=== PATIENT | female | born 1950 | race Caucasian/White ===

== ENCOUNTER → 2020-05-29 15:05 | Outpatient (CLI) | payer OTHER, SELFPAY ==
--- NOTE | ~2020-05-29 | MM_ITS ---
EXAMINATION: MM screening [facility] BI w tegan HISTORY: Screening mammogram TECHNIQUE: Craniocaudal and mediolateral oblique 3-D tomosynthesis images were obtained and synthetic 2-D images were generated. CAD analysis was submitted and interpreted. COMPARISON: 01/26/2019, 07/05/2017, 04/28/2016 bilateral digital screening mammogram examinations BREAST PARENCHYMAL COMPOSITION: The breasts are heterogeneously dense, which may obscure small masses . FINDINGS: Scattered bilateral benign calcifications. There is no evidence of suspicious mass, calcifi cation, or architectural distortion to suggest malignancy in either breast. There has been no suspici ous interval change. IMPRESSION: 1. No mammographic evidence of malignancy. 2. Recommend routine screening mammography in one year. BI-RADS Category 2: Benign Reviewed, dictated and finalized at location A. 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
== END ==
PROVIDERS: PCP Internal Medicine; Visit Provider Nurse Practitioner
DX: Z12.31 Encounter for screening mammogram for malignant neoplasm of breast (principal)
CPT/HCPCS: 77063; 77067

== ENCOUNTER 2020-11-27 07:58 | Outpatient (CLI) | payer OTHER, SELFPAY ==
--- NOTE | ~2020-11-27 | XR_ITS ---
EXAMINATION: XR abdomen/kub 1V INDICATION: Left upper quadrant pain TECHNIQUE: Supine views of the abdomen were obtained on 2 radiographs. COMPARISON: 06/21/2018 FINDINGS: Left upper quadrant calcifications likely reflect old granulomatous disease of the spleen. The bowel gas pattern is normal. There are multiple phleboliths in the pelvis. Calcifications to the left of midline in the pelvis and mid abdomen likely reflect gonadal vein phleboliths. There is mild osteoarthritis of the hips. IMPRESSION: 1. No radiographic correlate for the patient's symptoms. Reviewed, dictated and finalized at location B.
--- NOTE | ~2020-11-27 | XR_ITS ---
EXAMINATION: XR knee RT 3V DATE: 11/27/2020 08:18 INDICATION: Right knee pain TECHNIQUE: Three views of the right knee were obtained. COMPARISON: 01/26/2018 FINDINGS: Alignment is normal. No fracture or osteochondral lesion. There is tracker minimal osteoart hritis, moderate in the patellofemoral compartment and mild in the medial and lateral compartment. No joint effusion/synovitis. Calcified atherosclerosis is noted. Again seen are loose bodies in the kn ee joint and posterior to the knee joint. IMPRESSION: 1. 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 No acute findings. Reviewed, dictated and finalized at location B.
== END 2020-11-27 07:59 | disposition home or self-care (01) ==
PROVIDERS: PCP Internal Medicine; Visit Provider Nurse Practitioner
DX: R10.12 Left upper quadrant pain (principal); M25.561 Pain in right knee
CPT/HCPCS: 73562; 74018

== ENCOUNTER → 2021-05-19 09:17 | Outpatient (CLI) | payer OTHER, SELFPAY ==
[2021-05-19 13:20] LABS: Influenza A QL RT-PCR Negative (Negative); Influenza B QL RT-PCR Negative (Negative); SARS-CoV-2 RNA PCR Negative
== END ==
PROVIDERS: PCP Internal Medicine; Visit Provider Internal Medicine
DX: R68.89 Other general symptoms and signs (principal); Z20.822 Contact with and (suspected) exposure to COVID-19
CPT/HCPCS: 87502; C9803; U0003; U0005

== ENCOUNTER → 2021-07-31 04:47 | Outpatient (CLI) | payer OTHER, SELFPAY ==
[2021-07-31 11:27] LABS: Influenza A QL RT-PCR Negative (Negative); Influenza B QL RT-PCR Negative (Negative); SARS-CoV-2 RNA PCR Negative
== END ==
PROVIDERS: PCP Internal Medicine; Visit Provider Internal Medicine
DX: J06.9 Acute upper respiratory infection, unspecified (principal); Z20.822 Contact with and (suspected) exposure to COVID-19
CPT/HCPCS: 87502; C9803; U0003; U0005

== ENCOUNTER 2021-08-25 10:19 | Outpatient (CLI) | payer OTHER, SELFPAY ==
--- NOTE | ~2021-08-25 | US_ITS ---
EXAMINATION: US venous doppler [facility] DATE: 08/25/2021 10:53 INDICATION: Right lower limb pain TECHNIQUE: Gamez scale images without and with compression and Doppler images of the right lower extre mity veins were obtained. COMPARISON: None FINDINGS: The right common femoral vein, profunda femoral vein, femoral vein, popliteal vein, peronea l trunk, posterior tibial veins, and greater saphenous vein are patent. There is a subtle area of inc reased echogenicity in the superficial subcutaneous tissues in the area of clinical concern. IMPRESSION: 1. Patent right lower extremity veins. No evidence of deep venous thrombosis. 2. Findings suggestive of soft tissue hematoma in the area of clinical concern. Reviewed, dictated and finalized at location A.
== END 2021-08-25 10:20 | disposition home or self-care (01) ==
PROVIDERS: PCP Internal Medicine; Visit Provider Nurse Practitioner
DX: M79.605 Pain in left leg (principal)
CPT/HCPCS: 93971

== ENCOUNTER 2021-10-05 10:16 | Outpatient (CLI) | payer OTHER, SELFPAY ==
[2021-10-05 11:20] LABS: Anion Gap 5 mmol/L (8-16); Blood Urea Nitrogen 27 mg/dL (7-17); Calcium 9.1 mg/dL (8.4-10.2); Carbon Dioxide 26 mmol/L (22-30); Chloride 107 mmol/L (98-107); Cholesterol 154 mg/dL (0-200); Estimated Glomerular Filt Rate 49; Glucose 106 mg/dL (65-110); HDL Direct 37 mg/dL; Potassium 4.1 mmol/L (3.4-5.0); Sodium 138 mmol/L (137-145); Triglycerides 105 mg/dL (<150)
[2021-10-05 11:31] LABS: LDL Cholesterol Direct 76 mg/dL
== END 2021-10-05 10:17 | disposition home or self-care (01) ==
LOC: ANHLAB 10:18
PROVIDERS: PCP Internal Medicine; Visit Provider Internal Medicine Cardiovascular Disease
DX: I50.42 Chronic combined systolic (congestive) and diastolic (congestive) heart failure (principal); I25.118 Atherosclerotic heart disease of native coronary artery with other forms of angina pectoris; E78.00 Pure hypercholesterolemia, unspecified
CPT/HCPCS: 36415; 80048; 80061

== ENCOUNTER → 2021-10-05 11:57 | Outpatient (CLI) | payer OTHER, SELFPAY ==
--- NOTE | ~2021-10-05 | XR_ITS ---
XR_CERV2-3V_CR DATE: 10/05/2021 12:49 INDICATION: Neck pain TECHNIQUE: Lateral, swimmer's, AP, odontoid and open-mouth views COMPARISON: 09/30/2014 cervical spine FINDINGS: There is straightening of the cervical spine which may be due to muscle spasm. C1 and C2 ar e normally aligned and the odontoid process is intact. Moderate loss of interspace height is suggested at C5-6. No fracture or dislocation or locked facet or prevertebral soft tissue swelling is detected. IMPRESSION: Straightening, which may be due to muscle spasm Moderate degenerative disc disease at C5-6 Reviewed, dictated and finalized at Location A. Reviewed, dictated and finalized at location A.
== END ==
PROVIDERS: PCP Internal Medicine; Visit Provider Internal Medicine
DX: M50.322 Other cervical disc degeneration at C5-C6 level (principal)
CPT/HCPCS: 72040

== ENCOUNTER 2021-11-16 12:51 | Emergency (ER) | payer OTHER, SELFPAY ==
[2021-11-16] VITALS (36 sets, daily range): BP systolic 101–132; BP diastolic 51–82; PULSE 49–65; RESP 10–21; TEMP 36.8; O2SAT 95–100
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
--- NOTE | 2021-11-16 12:58 | ECG_ITS ---
Measurements Intervals [place] Rate: 60 P: 35 OK: 188 QRS: 115 QRSD: 121 T: 98 QT: 432 QTc: 434 Interpretive Statements SINUS RHYTHM ST-ELEVATION INFEROLATERAL LEADS WITH LATERAL MYOCARDIAL INFARCTION, PROBABLY RECENT ABNORMAL ECG NO PREVIOUS ECG AVAILABLE FOR COMPARISON Electronically Signed On 11-16-2021 16:35:42 CDT by Apolinar Morrissey M.D.
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
--- NOTE | 2021-11-16 13:38 | PC.NURSE ---
EDP and Recording Artist at bedside to assess pt.
[2021-11-16 13:55] LABS: Basophils Percent Auto 0.5 % (0.2-1.2); Eosinophils Absolute Auto 0.2 K/mm3 (0-0.3); Eosinophils Percent Auto 3.3 % (0-4.4); Hematocrit 36.1 % (37.0-47.0); Hemoglobin 12.3 g/dL (12.0-15.0); Immature Granulocyte Absolute 0.01 K/mm3 (0.00-0.031); Immature Granulocyte Percent A 0.2 % (0-0.5); Lymphocytes Absolute Auto 1.98 K/mm3 (0.9-3.2); Lymphocytes Percent Auto 34.7 % (18.3-44.2); Mean Corpuscular HGB Conc 34.1 g/dl (32-36); Mean Corpuscular Hemoglobin 29.6 pg (26-34); Mean Corpuscular Volume 86.8 fl (80-100); Monocytes Absolute Auto 0.4 K/mm3 (0.1-0.6); Monocytes Percent Auto 7.4 % (2.6-8.5); Neutrophils Absolute Auto 3.1 K/mm3 (1.3-6.7); Neutrophils Percent Auto 53.9 % (45.5-73.1); Platelet Count Result 190 k/mm3 (150-375); Red Blood Count 4.16 M/mm3 (4.2-5.4); Red Cell Distribution Width 12.9 % (11.5-14.5); White Blood Count 5.7 K/mm3 (4.5-10.0)
[2021-11-16 14:06] LABS: INR 1.1; Prothrombin Time 13.5 Seconds (11.1-14.7)
[2021-11-16 14:07] LABS: Partial Thromboplastin Time 26.9 SECONDS (22.3-36.8)
[2021-11-16 14:11] LABS: Alanine Aminotransferase 21 U/L (6-35); Albumin Level 3.7 g/dL (3.5-5.1); Alkaline Phosphatase 45 U/L (38-126); Anion Gap 8 mmol/L (8-16); Aspartate Amino Transferase 26 U/L (14-36); Bilirubin,Total 0.5 mg/dL (0.2-1.3); Blood Urea Nitrogen 25 mg/dL (7-17); Calcium 8.7 mg/dL (8.4-10.2); Carbon Dioxide 25 mmol/L (22-30); Chloride 104 mmol/L (98-107); Estimated CRCL calculation 54 ml/min; Estimated Glomerular Filt Rate > 60; Glucose 119 mg/dL (65-110); Magnesium 2.1 mg/dL (1.6-2.3); Sodium 137 mmol/L (137-145)
[2021-11-16] MEDS: MORPHINE SULFATE (*CRX) 2 MG/ML INJ IV PUSH (14:16)
[2021-11-16] MEDS: ONDANSETRON INJ 4 MG/2 ML VIAL IV PUSH (14:16)
[2021-11-16] MEDS: ASPIRIN 325 MG TABLET PO (14:16)
[2021-11-16 14:22] LABS: NT Pro B Type Natriuretic Pept 574 pg/mL (5-100); Troponin I 0.019 ng/mL (0.000-0.034)
[2021-11-16] MEDS: FUROSEMIDE INJ 40 MG/4 ML VIAL 20 MG IV PUSH (15:40)
[2021-11-16 17:03] LABS: Troponin I 0.021 ng/mL (0.000-0.034)
== END 2021-11-16 18:24 | disposition home or self-care (01) ==
PROVIDERS: Emergency Provider Emergency Medicine; PCP Internal Medicine
DX: S29.9XXA Unspecified injury of thorax, initial encounter (principal); I25.10 Atherosclerotic heart disease of native coronary artery without angina pectoris; I10 Essential (primary) hypertension; E78.5 Hyperlipidemia, unspecified; M19.90 Unspecified osteoarthritis, unspecified site; E55.9 Vitamin D deficiency, unspecified; Z95.5 Presence of coronary angioplasty implant and graft; Z90.710 Acquired absence of both cervix and uterus; Z79.82 Long term (current) use of aspirin; Z79.02 Long term (current) use of antithrombotics/antiplatelets; I51.7 Cardiomegaly; R94.31 Abnormal electrocardiogram [ECG] [EKG]; V47.0XXA Car driver injured in collision with fixed or stationary object in nontraffic accident, initial encounter
CPT/HCPCS: 36415; 71045; 71260; 80053; 83735; 83880; 84484; 85025; 85610; 85730; 93005; 96374; 96375; 99284; A9270; J1940; J2270; J2405; Q9967

== ENCOUNTER 2021-12-08 09:02 | Outpatient (CLI) | payer OTHER, SELFPAY ==
[2021-12-08 09:59] LABS: Alanine Aminotransferase 17 U/L (6-35); Alkaline Phosphatase 53 U/L (38-126); Anion Gap 7 mmol/L (8-16); Aspartate Amino Transferase 26 U/L (14-36); Bilirubin,Total 0.6 mg/dL (0.2-1.3); Blood Urea Nitrogen 15 mg/dL (7-17); Calcium 8.7 mg/dL (8.4-10.2); Carbon Dioxide 25 mmol/L (22-30); Chloride 109 mmol/L (98-107); Cholesterol 128 mg/dL (0-200); Estimated Glomerular Filt Rate 55; Glucose 100 mg/dL (65-110); HDL Direct 38 mg/dL; Potassium 4.2 mmol/L (3.4-5.0); Sodium 141 mmol/L (137-145); Triglycerides 96 mg/dL (<150)
[2021-12-08 10:10] LABS: LDL Cholesterol Direct 47 mg/dL
[2021-12-08 12:09] LABS: Hemoglobin A1C 5.5 % (<5.7)
== END 2021-12-08 09:03 | disposition home or self-care (01) ==
PROVIDERS: PCP Internal Medicine; Visit Provider Internal Medicine
DX: E55.9 Vitamin D deficiency, unspecified (principal); E78.5 Hyperlipidemia, unspecified; R73.02 Impaired glucose tolerance (oral)
CPT/HCPCS: 36415; 80053; 80061; 82306; 83036

== ENCOUNTER 2022-03-29 16:25 | Outpatient (NON) | payer OTHER, SELFPAY | END 2022-03-29 16:26 | disposition home or self-care (01) | PROVIDERS: PCP Internal Medicine; Visit Provider Internal Medicine | DX: R19.7 Diarrhea, unspecified (principal) | CPT/HCPCS: 87045; 87427 ==

== ENCOUNTER 2022-04-16 20:51 | Emergency (ER) | payer OTHER, SELFPAY ==
--- NOTE | ~2022-04-16 | XR_ITS ---
EXAMINATION: XR chest 2V DATE: 04/16/2022 22:21 INDICATION: Cough. Shortness of breath. Chills. Diarrhea. TECHNIQUE: Frontal and lateral views of the chest were obtained. COMPARISON: Chest single view 11/16/2021, chest CT 11/16/2021 FINDINGS: Calcified lung nodules and calcified hilar and mediastinal lymph nodes are consistent with old granulomatous disease. There is no pneumonia, pleural effusion, or pneumothorax. Cardiomegaly is noted. IMPRESSION: 1. Cardiomegaly. Reviewed, dictated and finalized at location A. 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 Cardiomegaly.
[2022-04-16 20:53] VITALS: BP 110/63; PULSE 97; RESP 20; TEMP 36.7; O2SAT 99
--- NOTE | 2022-04-16 21:38 | ECG_ITS ---
Measurements Intervals [place] Rate: 94 P: 56 DE: 166 QRS: 105 QRSD: 112 T: 37 QT: 322 QTc: 404 Interpretive Statements REDUCED ECG QUALITY BECAUSE OF BASELINE ARTIFACT SINUS RHYTHM RIGHT AXIS DEVIATION [QRS AXIS > 100] PREVIOUS INFEROLATERAL MYOCARDIAL INFARCTION WITH PERSISTENT ST SEGMENT ELEVATION COMPARED TO ECG 11/16/2021 13:02:32 NO SIGNIFICANT CHANGES OTHER THAN BASELINE ARTIFACT ON THIS CURRENT TRACING Electronically Signed On 04-17-2022 9:46:53 WEBMETHODS ARCHITECT by Angel Inman M.D.
--- NOTE | 2022-04-16 21:51 | ED.URI ---
HPI - URI/Sore Throat General Chief Complaint: Upper Respiratory Infection Stated Complaint: cough Time Seen by Provider: 04/16/22 21:30 Source: patient and RN notes reviewed Mode of arrival: ambulatory Limitations: no limitations History of Present Illness HPI Narrative: This is a 71 year old female with history of CHF, hypertension, CAD, stents who presents for evaluation of cough, headache. She reports having sinus congestion, sinus pressure and runny nose for 3 days. She also reports cough productive with yellowish phlegm. she also reports frontal headache that has been constant for 3 day. She denies nausea or vomiting, but she is having diarrhea. She reports 5 episodes of watery, nonbloody diarrhea today with intermittent abdominal cramping. She denies abdominal cramping currently. She denies chest pain but she reports shortness of breath. She also had upper back pain with coughing today. She has not measured a fever at home. She has been taking tessalon perles and mucinex for her symptoms. Related Data Home Medications Medication Instructions Recorded Confirmed aspirin 81 mg tablet,delayed 81 mg PO DAILY 04/08/20 10/05/21 release cholecalciferol (vitamin D3) 125 mcg PO 04/08/20 10/05/21 mcg (5,000 unit) disintegrating tablet potassium chloride 10 mEq 10 meq PO DAILY 04/08/20 10/05/21 tablet,extended release(part/cryst) metoprolol succinate 25 mg 25 mg PO DAILY 10/05/21 10/05/21 tablet,extended release 24 hr ticagrelor 60 mg tablet (Brilinta) 60 mg PO Q12H 10/05/21 10/05/21 Allergies Allergy/AdvReac Type Severity Reaction Status Date / Time No Known Allergies Allergy Verified 12/11/21 08:18 Review of Systems Constitutional: Constitutional: Reports fatigue and Denies weakness ENT: Reports dizziness and Reports nasal congestion Cardiovascular: Cardiovascular: Denies chest pain, Denies syncope, Denies rapid heart rate, Denies irregular heart rhythm, Denies leg edema and Reports dyspnea Respiratory: Respiratory: Reports chest congestion, Reports cough, Denies hemoptysis, Denies excessive phlegm production and Reports dyspnea Gastrointestinal: Gastrointestinal: Reports abdominal pain, Denies hematochezia, Reports diarrhea and Denies vomiting Genitourinary: Genitourinary: Denies hematuria and Denies dysuria Musculoskeletal: Musculoskeletal: Denies joint swelling, Denies loss of height and Denies muscle weakness Neurologic: Denies syncope, Reports headache(s), Denies focal weakness and Denies weakness PMFSH Past Medical History Medical History (Updated 04/17/22 @ 04:43 by Rabia Manzanares MD) ASHD (arteriosclerotic heart disease) CAD (coronary artery disease) CHF (congestive heart failure) Eczema Essential (primary) hypertension Hyperlipidemia Osteoarthritis Vitamin D deficiency Surgical History Surgical History H/O angioplasty H/O: hysterectomy Family History Family History Mother Diabetes mellitus COPD (chronic obstructive pulmonary disease) Father Acute myocardial infarction Sibling Carcinoma of colon with metastasis Sibling Diabetes mellitus Social History Social History Smoking status: Never smoker Alcohol intake: current Alcohol use details: rarely Exam Narrative: GENERAL: Well-appearing, well-nourished, and in no acute distress. HEAD: Normocephalic, atraumatic EYES: PERRLA and EOMI, conjunctiva clear without discharge EARS: TM's clear bilaterally without erythema or dullness NOSE: Nares clear, no rhinorrhea or epistaxis THROAT:Mucous membranes moist, Oropharynx normal without erythema, exudate, peritonsillar swelling or fluctuance NECK: Supple, without lymphadenopathy or mass RESPIRATORY: No respiratory distress, Airway patent, Respirations non-labore
[2022-04-16 22:38] LABS: Alanine Aminotransferase 24 U/L (6-35); Albumin Level 4.1 g/dL (3.5-5.1); Alkaline Phosphatase 53 U/L (38-126); Anion Gap 9 mmol/L (8-16); Aspartate Amino Transferase 28 U/L (14-36); Bilirubin,Total 0.7 mg/dL (0.2-1.3); Blood Urea Nitrogen 21 mg/dL (7-17); Calcium 8.6 mg/dL (8.4-10.2); Carbon Dioxide 22 mmol/L (22-30); Chloride 104 mmol/L (98-107); Estimated CRCL calculation 51 ml/min; Estimated Glomerular Filt Rate 55; Glucose 102 mg/dL (65-110); Potassium 4.3 mmol/L (3.4-5.0); Sodium 135 mmol/L (137-145)
[2022-04-16 22:54] LABS: NT Pro B Type Natriuretic Pept 885 pg/mL (5-100); Troponin I 0.042 ng/mL (0.000-0.034)
[2022-04-16] MEDS: SODIUM CHLORIDE 0.9% IV 500 ML 999 ML IV CONT (23:18)
[2022-04-16 23:26] LABS: Basophils Percent Auto 0.2 % (0.2-1.2); Eosinophils Absolute Auto 0.1 K/mm3 (0-0.3); Eosinophils Percent Auto 1.3 % (0-4.4); Hematocrit 41.4 % (37.0-47.0); Immature Granulocyte Absolute 0.03 K/mm3 (0.00-0.031); Immature Granulocyte Percent A 0.4 % (0-0.5); Immature Platelet Fraction Pct 2.7 % (0.9-11.2); Lymphocytes Percent Auto 21.7 % (18.3-44.2); Mean Corpuscular HGB Conc 33.8 g/dl (32-36); Mean Corpuscular Hemoglobin 30.4 pg (26-34); Mean Corpuscular Volume 89.8 fl (80-100); Mean Platelet Volume 9.7 fl (7.4-10.4); Monocytes Percent Auto 12.3 % (2.6-8.5); Neutrophils Absolute Auto 5.3 K/mm3 (1.3-6.7); Neutrophils Percent Auto 64.1 % (45.5-73.1); Platelet Count Result 197 k/mm3 (150-375); Red Blood Count 4.61 M/mm3 (4.2-5.4); Red Cell Distribution Width 12.5 % (11.5-14.5); White Blood Count 8.3 K/mm3 (4.5-10.0)
[2022-04-17 01:09] LABS: INR 1.2; Partial Thromboplastin Time 26.9 SECONDS (22.3-36.8); Prothrombin Time 14.5 Seconds (11.1-14.7)
[2022-04-17] MEDS: SACUBITRIL/VALSARTAN 24-26 MG TABLET 1 TAB PO (01:47)
[2022-04-17] MEDS: ATORVASTATIN 40 MG TABLET PO (01:47)
[2022-04-17] MEDS: ZOLPIDEM TARTRATE (*CRX) 5 MG TABLET PO (01:48)
[2022-04-17] MEDS: TICAGRELOR 60 MG TABLET PO (01:48)
[2022-04-17 02:23] LABS: Influenza A QL RT-PCR Negative (Negative); Influenza B QL RT-PCR Negative (Negative); SARS-CoV-2 RNA PCR Positive
== END 2022-04-17 04:56 | disposition home or self-care (01) ==
PROVIDERS: Emergency Provider General Practice; PCP Internal Medicine
DX: U07.1 COVID-19 (principal); I50.9 Heart failure, unspecified; I11.0 Hypertensive heart disease with heart failure; I25.10 Atherosclerotic heart disease of native coronary artery without angina pectoris; E78.5 Hyperlipidemia, unspecified; M19.90 Unspecified osteoarthritis, unspecified site; E55.9 Vitamin D deficiency, unspecified; Z95.5 Presence of coronary angioplasty implant and graft; Z90.710 Acquired absence of both cervix and uterus; Z79.82 Long term (current) use of aspirin; Z79.02 Long term (current) use of antithrombotics/antiplatelets; R94.31 Abnormal electrocardiogram [ECG] [EKG]
CPT/HCPCS: 36415; 71046; 80053; 83880; 84484; 85025; 85055; 85610; 85730; 87502; 87636; 93005; 96361; 96374; 99284; A9270; J0131; J7040; U0003; U0005

== ENCOUNTER 2022-05-27 16:30 | Outpatient (CLI) | payer OTHER, SELFPAY ==
[2022-05-27 17:13] LABS: Alanine Aminotransferase 25 U/L (6-35); Albumin Level 4.8 g/dL (3.5-5.1); Alkaline Phosphatase 49 U/L (38-126); Anion Gap 6 mmol/L (8-16); Aspartate Amino Transferase 40 U/L (14-36); Bilirubin,Total 0.8 mg/dL (0.2-1.3); Blood Urea Nitrogen 21 mg/dL (7-17); Calcium 9.1 mg/dL (8.4-10.2); Carbon Dioxide 28 mmol/L (22-30); Chloride 101 mmol/L (98-107); Cholesterol 154 mg/dL (0-200); Estimated Glomerular Filt Rate > 60; Glucose 91 mg/dL (65-110); HDL Direct 53 mg/dL; Potassium 4.6 mmol/L (3.4-5.0); Sodium 135 mmol/L (137-145); Triglycerides 109 mg/dL (<150)
[2022-05-27 17:29] LABS: LDL Cholesterol Direct 62 mg/dL
[2022-05-31 21:29] LABS: PCP NEGATIVE ng/mL (<25)
[2022-06-04 16:49] LABS: Amphetamines Negative; Barbiturates Negative; Benzodiazepines Negative; Cocaine Metabolites Negative; Marijuana Metabolites Negative
== END 2022-05-27 16:31 | disposition home or self-care (01) ==
LOC: ANHLAB 16:32
PROVIDERS: Nurse Practitioner; PCP Internal Medicine; Visit Provider Internal Medicine
DX: Z51.81 Encounter for therapeutic drug level monitoring (principal); Z79.899 Other long term (current) drug therapy; E78.5 Hyperlipidemia, unspecified
CPT/HCPCS: 36415; 80053; 80061; 80307

== ENCOUNTER → 2022-08-05 10:55 | Outpatient (CLI) | payer OTHER, SELFPAY ==
--- NOTE | ~2022-08-05 | DEXA_ITS ---
Bone Density Report Name: AN DORSEY Age: 71 Sex: Female Ethnicity: White Date of : 1950 Indication: postmenopausal; screening for osteoporosis; height loss; hysterectomy; Referring Provider: Anu, Daxa Study: Bone densitometry was performed. Exam Date: August 05, 2022 Accession number: [id number] Bone Density: Region BMD T-score Z-score Classification AP Spine (L1-L4) 1.254 1.9 4.0 Normal Femoral Neck (Left) 0.954 0.9 2.8 Normal Total Hip (Left) 1.048 0.9 2.4 Normal Femoral Neck (Right) 1.173 2.9 4.8 Normal Total Hip (Right) 1.078 1.1 2.7 Normal Total Hip Mean 1.063 1.0 2.6 Normal World Health Organization criteria for BMD impression classify patients as: Normal (T-score at or above -1.0), Osteopenia (T-score between -1.0 and -2.5), or Osteoporosis (T-score at or below -2.5). 10-year Fracture Risk: FRAX not reported because: All T-scores for Spine Total, Hip Total, Femoral Neck at or above -1.0 Previous Exams: Region Exam Age BMD T-score BMD Change BMD Change Date g/cm2 vs Baseline vs Previous AP Spine(L1-L4) 08/05/2022 71 1.254 1.9 0.039 0.039 03/13/2008 57 1.215 1.5 Total Hip(Left) 08/05/2022 71 1.048 0.9 0.020 0.020 03/13/2008 57 1.028 0.7 Total Hip(Right) 08/05/2022 71 1.078 1.1 0.021 0.021 03/13/2008 57 1.057 0.9 *Denotes significance at 95% confidence level, LSC for AP Spine = 0.022 g/cm2, LSC for Total Hip = 0.027 g/cm2 Clinical Information Provided by Patient: Has used the following medications: Vitamin D Has the following medical conditions: Hysterectomy Patient maximum height was 65.0 Menopause Age: 29 No regular weight bearing exercise Drinks caffeinated beverages Onset of menses at age 13 Number of children 2 Impression: The patient has normal bone mass. No significant bone loss was observed. Discussion: LOW RISK OF FRACTURE; BONE DENSITY IS WELL ABOVE THE MINIMUM DESIRABLE LEVEL AND ABOVE AVERAGE FOR AGE AND SEX AT ALL SKELETAL SITES TESTED. This person's bone density is above expected limits for age and sex. This is rarely clinically significant, but should be pursued if there are significant musculoskeletal complaints. The patient should follow a healthful lifestyle (good nutrition with adequate calcium and vitamin D, and appropriate weight-bearing exercise). Follow-Up: Consider repeating this study in 5 years or
--- NOTE | ~2022-08-05 | MM_ITS ---
EXAMINATION: MM screening [facility] BI w tegan HISTORY: Screening mammogram TECHNIQUE: Craniocaudal and mediolateral oblique 3-D tomosynthesis images were obtained and synthetic 2-D images were generated. CAD analysis was submitted and interpreted. COMPARISON: 05/29/2020, 01/26/2019, 07/05/2017 BREAST PARENCHYMAL COMPOSITION: The breasts are heterogeneously dense, which may obscure small masses . FINDINGS: No suspicious mass, calcification, or architectural distortion are identified in either norma ast to suggest malignancy. There has been no suspicious interval change. IMPRESSION: 1. No mammographic evidence of malignancy. 2. Recommend routine screening mammography in one year. BI-RADS Category 1: Negative Reviewed, dictated and finalized at location A.
== END ==
PROVIDERS: PCP Internal Medicine; Visit Provider Nurse Practitioner
DX: Z12.31 Encounter for screening mammogram for malignant neoplasm of breast (principal); Z78.0 Asymptomatic menopausal state
CPT/HCPCS: 77063; 77067; 77080

== ENCOUNTER 2022-09-27 09:02 | Outpatient (CLI) | payer OTHER, SELFPAY ==
[2022-09-27 10:24] LABS: Anion Gap 2 mmol/L (8-16); Blood Urea Nitrogen 24 mg/dL (7-17); Calcium 8.8 mg/dL (8.4-10.2); Carbon Dioxide 33 mmol/L (22-30); Chloride 105 mmol/L (98-107); Estimated Glomerular Filt Rate > 60; Glucose 97 mg/dL (65-110); Sodium 140 mmol/L (137-145)
== END 2022-09-27 09:03 | disposition home or self-care (01) ==
PROVIDERS: PCP Family Medicine; Visit Provider Internal Medicine Cardiovascular Disease
DX: I25.5 Ischemic cardiomyopathy (principal)
CPT/HCPCS: 36415; 80048

== ENCOUNTER 2023-03-09 12:34 | Outpatient (CLI) | payer OTHER, SELFPAY ==
[2023-03-09 13:08] LABS: Basophils Percent Auto 0.3 % (0.2-1.2); Eosinophils Percent Auto 0.1 % (0-4.4); Hemoglobin 14.3 g/dL (12.0-15.0); Immature Granulocyte Absolute 0.04 K/mm3 (0.00-0.031); Immature Granulocyte Percent A 0.3 % (0-0.5); Lymphocytes Absolute Auto 2.25 K/mm3 (0.9-3.2); Lymphocytes Percent Auto 14.3 % (18.3-44.2); Mean Corpuscular Volume 91.1 fl (80-100); Mean Platelet Volume 10.3 fl (7.4-10.4); Monocytes Absolute Auto 1.4 K/mm3 (0.1-0.6); Monocytes Percent Auto 8.6 % (2.6-8.5); Neutrophils Percent Auto 76.4 % (45.5-73.1); Platelet Count Result 293 k/mm3 (150-375); Red Blood Count 4.61 M/mm3 (4.2-5.4); Red Cell Distribution Width 14.2 % (11.5-14.5); White Blood Count 15.7 K/mm3 (4.5-10.0)
[2023-03-09 13:25] LABS: Alanine Aminotransferase 18 U/L (6-35); Albumin Level 4.4 g/dL (3.5-5.1); Alkaline Phosphatase 63 U/L (38-126); Amylase 47 U/L (30-110); Anion Gap 13 mmol/L (8-16); Aspartate Amino Transferase 25 U/L (14-36); Bilirubin,Total 1.5 mg/dL (0.2-1.3); Blood Urea Nitrogen 25 mg/dL (7-17); Calcium 9.4 mg/dL (8.4-10.2); Carbon Dioxide 21 mmol/L (22-30); Chloride 103 mmol/L (98-107); Estimated Glomerular Filt Rate 55; Glucose 111 mg/dL (65-110); Lipase 30 U/L (23-300); Potassium 3.7 mmol/L (3.4-5.0); Sodium 137 mmol/L (137-145)
[2023-03-11 21:23] LABS: Influenza A QL RT-PCR Negative (Negative); Influenza B QL RT-PCR Negative (Negative)
== END 2023-03-09 12:35 | disposition home or self-care (01) ==
LOC: ANHLAB 12:36
PROVIDERS: PCP Nurse Practitioner Family; Visit Provider Nurse Practitioner Family
DX: R10.32 Left lower quadrant pain (principal); R10.84 Generalized abdominal pain; R19.7 Diarrhea, unspecified; R10.12 Left upper quadrant pain
CPT/HCPCS: 80053; 82150; 83690; 85025; 87502; 87804

== ENCOUNTER 2023-03-11 15:40 | Outpatient (CLI) | payer OTHER, SELFPAY ==
[2023-03-11 19:57] LABS: Toxigenic C. Diff POSITIVE (NEGATIVE)
== END 2023-03-11 15:41 | disposition home or self-care (01) ==
PROVIDERS: PCP Nurse Practitioner Family; Visit Provider Nurse Practitioner Family
DX: R10.32 Left lower quadrant pain (principal); R10.84 Generalized abdominal pain; R19.7 Diarrhea, unspecified
CPT/HCPCS: 87493

== ENCOUNTER 2023-03-11 15:50 | Emergency (ER) | payer OTHER, SELFPAY ==
[2023-03-11] VITALS (12 sets, daily range): BP systolic 101–125; BP diastolic 48–64; PULSE 62–87; RESP 15–20; TEMP 36.1; O2SAT 98–100
--- NOTE | ~2023-03-11 | CT_ITS ---
EXAMINATION: CT abdomen pelvis w con DATE: 03/11/2023 19:38 INDICATION: Left lower quadrant tenderness. Diarrhea. TECHNIQUE: Computed tomography (CT) of the abdomen and pelvis was performed with 100 CC Omnipaque 350 intravenous contrast. Automated exposure control and iterative reconstruction technique were employe d. Exam dose: 727.40 mGy-cm total exam DLP. COMPARISON: None. FINDINGS: Mild discoid atelectasis or scarring in the base of the lingula and left lower lobe. No inf iltrate or consolidation in the included lower lung zones. Heart size appears upper limits of normal size. No pericardial or pleural effusion. There are several hepatic cysts, the largest measuring approximately 1.5 cm. The gallbladder is unremarkable. No bile duct duct dilatation. No pancreatic mass lesion, calcification or pancreatic ductal dilatation. Normal morphology of the adrenal glands. Occasional bilateral small renal cysts. Mild bilateral renal scarring. No urinary tract calculus or hydroureteronephrosis. Normal caliber of the abdominal aorta. No intraperitoneal or retroperitoneal or pelvic mass lesion or adenopathy or ascites Status post hysterectomy. The urinary bladder is unremarkable. Normal appendix. There is subtle mild pericolic soft tissue stranding of the distal descending colon with adjacent thi ckening of the anterior pararenal fascia, suggesting mild distal descending diverticulitis. No bowel obstruction or intraperitoneal free air. Small fat-containing umbilical hernia. Severe degenerative disease at L5-S1. No suspicious osteolytic or osteoblastic lesions. IMPRESSION: Mild distal descending diverticulitis Status post hysterectomy Hepatic cysts, occasional small renal cysts Mild renal scarring. Status post hysterectomy Reviewed, dictated and finalized at Location A. Reviewed, dictated and finalized at location A. 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
[2023-03-11 17:05] LABS: Basophils Percent Auto 0.6 % (0.2-1.2); Eosinophils Absolute Auto 0.1 K/mm3 (0-0.3); Eosinophils Percent Auto 1.7 % (0-4.4); Hematocrit 39.9 % (37.0-47.0); Hemoglobin 13.3 g/dL (12.0-15.0); Immature Granulocyte Absolute 0.01 K/mm3 (0.00-0.031); Immature Granulocyte Percent A 0.1 % (0-0.5); Lymphocytes Percent Auto 27.3 % (18.3-44.2); Mean Corpuscular HGB Conc 33.3 g/dl (32-36); Mean Corpuscular Hemoglobin 29.6 pg (26-34); Mean Corpuscular Volume 88.9 fl (80-100); Mean Platelet Volume 9.9 fl (7.4-10.4); Monocytes Absolute Auto 0.7 K/mm3 (0.1-0.6); Monocytes Percent Auto 10.2 % (2.6-8.5); Neutrophils Absolute Auto 4.2 K/mm3 (1.3-6.7); Neutrophils Percent Auto 60.1 % (45.5-73.1); Platelet Count Result 285 k/mm3 (150-375); Red Blood Count 4.49 M/mm3 (4.2-5.4); Red Cell Distribution Width 13.1 % (11.5-14.5)
[2023-03-11 17:18] LABS: Alanine Aminotransferase 15 U/L (6-35); Alkaline Phosphatase 63 U/L (38-126); Anion Gap 12 mmol/L (8-16); Aspartate Amino Transferase 24 U/L (14-36); Bilirubin,Total 0.8 mg/dL (0.2-1.3); Blood Urea Nitrogen 17 mg/dL (7-17); Calcium 9.2 mg/dL (8.4-10.2); Carbon Dioxide 22 mmol/L (22-30); Chloride 105 mmol/L (98-107); Estimated CRCL calculation 52 ml/min; Estimated Glomerular Filt Rate > 60; Glucose 102 mg/dL (65-110); Lipase 53 U/L (23-300); Potassium 3.5 mmol/L (3.4-5.0); Sodium 139 mmol/L (137-145)
--- NOTE | 2023-03-11 18:27 | ED.ABDPAIN ---
HPI - Abdominal Pain General Chief Complaint: Abdominal Pain Stated Complaint: abdominal pain Time Seen by Provider: 03/11/23 17:47 History of Present Illness HPI narrative: Patient is a 72-year-old female presenting with abdominal pain. States that for the last 4 days she has had left lower quadrant pain associated with mucousy diarrhea. She saw her PCP who ordered a stool specimen which she turned in today. She was advised to come in as the left lower quadrant pain has worsened. No nausea or vomiting but she does report decreased appetite. No fevers. No chest pain or shortness of breath. No further complaints. Related Data Home Medications Medication Instructions Recorded Confirmed aspirin 81 mg tablet,delayed 81 mg PO DAILY 04/08/20 03/09/23 release metoprolol succinate 25 mg 25 mg PO DAILY 10/05/21 03/09/23 tablet,extended release 24 hr ticagrelor 60 mg tablet (Brilinta) 60 mg PO Q12H 10/05/21 03/09/23 cholecalciferol (vitamin D3) 125 mcg PO DAILY 05/27/22 03/09/23 mcg (5,000 unit) disintegrating tablet spironolactone 25 mg tablet 25 mg PO DAILY 06/23/22 03/09/23 Allergies Allergy/AdvReac Type Severity Reaction Status Date / Time No Known Allergies Allergy Verified 03/11/23 15:50 Review of Systems Review of Systems: All systems reviewed & are unremarkable except as noted in HPI and below PMFSH Past Medical History Medical History ASHD (arteriosclerotic heart disease) CAD (coronary artery disease) Cervical radiculopathy due to degenerative joint disease of spine CHF (congestive heart failure) COVID-19 Eczema Essential (primary) hypertension Hyperlipidemia Osteoarthritis Vitamin D deficiency Surgical History Surgical History H/O angioplasty H/O: hysterectomy Family History Family History Mother Diabetes mellitus COPD (chronic obstructive pulmonary disease) Father Acute myocardial infarction Sibling Carcinoma of colon with metastasis Sibling Diabetes mellitus Social History Social History Smoking status: Never smoker Alcohol intake: never Substance use: never Substance use type: does not use Lack of Transportation: No Lack of Food: Never True Current Housing: I Have Housing Concerned About Future Housing: No Difficulty Paying Gas/Electric Bills: No Difficulty Paying for Meds: No Currently Unemployed: No Education: High School Diploma/GED Difficulty w/ Childcare or Family Care: No Exam Narrative: GENERAL: Well-appearing and in no acute distress. HEAD: Normocephalic, atraumatic. EYES: PERRLA and EOMI. ENT: Mucous membranes tacky NECK: Supple. CHEST: Clear to auscultation. No respiratory distress. HEART: Regular rate and rhythm ABDOMEN: Soft, + Left lower quadrant tenderness without guarding or rebound EXTREMITIES: Normal range of motion. SKIN: Warm, dry, no rash. NEURO: Alert and oriented x3. PSYCH: Normal mood and affect. Course Vital Signs Vital signs: Vital Signs Temperature 97.0 F L 03/11/23 16:02 Pulse Rate 87 03/11/23 16:02 Respiratory Rate 18 03/11/23 16:02 Blood Pressure 120/62 03/11/23 16:02 Pulse Oximetry 98 03/11/23 16:02 Oxygen Delivery Room Air 03/11/23 16:02 Temperature 97.0 F L 03/11/23 16:02 Pulse Rate 67 03/11/23 21:01 Respiratory Rate 20 03/11/23 21:35 Blood Pressure 113/64 03/11/23 21:20 Pulse Oximetry 100 03/11/23 21:01 Oxygen Delivery Room Air 03/11/23 16:02 MDM - Abdominal Pain MDM Narrative Medical decision making narrative: 72-year-old female presenting with diarrhea and left lower quadrant pain. Vitals are stable. Exam remarkable for the above. Blood work is unremarkable.
[2023-03-11] MEDS: SODIUM CHLORIDE 0.9% IV 1,000 ML 999 ML IV CONT (18:33)
[2023-03-11] MEDS: MORPHINE SULFATE (*CRX) 4 MG/ML INJ IV PUSH (18:33)
--- NOTE | 2023-03-11 18:35 | PC.NURSE ---
pt wants to see if iv fluids will make them urinate and doesn't want a straight cath at this time.
[2023-03-11 20:21] LABS: Appearance Urine Cloudy (Clear); Bacteria Urine 1+ /hpf; Bilirubin Urine Negative (Negative); Blood Urine Negative (Negative); Color Urine Yellow (Yellow); Glucose Urine UA Negative (Negative); Ketones Urine Negative (Negative); Leukocyte Esterase Ur 1+ LEU/UL (Negative); Need Manual Microscopic Reviewed; Nitrate Urine Negative (Negative); Non Pathogenic Casts 0-2; Protein Urine Negative (Negative); RBC Urine 0-2 /hpf (0-2); Squamous Epithelial Cell Urine Moderate /hpf (Few); Urobilinogen Urine 0.2 mg/dL (<2.0); pH Urine 5.5 (5.0-9.0)
[2023-03-11 20:23] LABS: Specific Grav Ur 1.066 (1.001-1.035)
[2023-03-11 20:24] LABS: Add Urine Microscopic? YES
[2023-03-11] MEDS: VANCOMYCIN ORAL 125 MG/2.5 ML SYRUP PO (21:26)
== END 2023-03-11 21:36 | disposition home or self-care (01) ==
PROVIDERS: Emergency Provider Emergency Medicine; PCP Nurse Practitioner Family
DX: A04.72 Enterocolitis due to Clostridium difficile, not specified as recurrent (principal); I25.10 Atherosclerotic heart disease of native coronary artery without angina pectoris; I50.9 Heart failure, unspecified; I11.0 Hypertensive heart disease with heart failure; E78.5 Hyperlipidemia, unspecified; E55.9 Vitamin D deficiency, unspecified; M19.90 Unspecified osteoarthritis, unspecified site; Z98.61 Coronary angioplasty status; Z86.16 Personal history of COVID-19; Z90.710 Acquired absence of both cervix and uterus; Z79.82 Long term (current) use of aspirin; K76.89 Other specified diseases of liver; K57.32 Diverticulitis of large intestine without perforation or abscess without bleeding
CPT/HCPCS: 36415; 74177; 80053; 81001; 83690; 85025; 87086; 87493; 96361; 96374; 99284; A9270; J2270; J7030; Q9967

== ENCOUNTER 2023-06-24 10:17 | Outpatient (CLI) | payer OTHER, SELFPAY ==
[2023-06-24 10:43] LABS: Hematocrit 44.5 % (37.0-47.0); Hemoglobin 14.9 g/dL (12.0-15.0); Mean Corpuscular HGB Conc 33.5 g/dl (32-36); Mean Corpuscular Hemoglobin 29.4 pg (26-34); Mean Corpuscular Volume 87.8 fl (80-100); Mean Platelet Volume 9.6 fl (7.4-10.4); Platelet Count Result 224 k/mm3 (150-375); Red Blood Count 5.07 M/mm3 (4.2-5.4); Red Cell Distribution Width 13.4 % (11.5-14.5); White Blood Count 8.1 K/mm3 (4.5-10.0)
[2023-06-24 11:05] LABS: Alanine Aminotransferase 32 U/L (6-35); Albumin Level 4.1 g/dL (3.5-5.1); Alkaline Phosphatase 71 U/L (38-126); Anion Gap 7 mmol/L (8-16); Aspartate Amino Transferase 28 U/L (14-36); Bilirubin,Total 1.2 mg/dL (0.2-1.3); Blood Urea Nitrogen 20 mg/dL (7-17); Calcium 9.5 mg/dL (8.4-10.2); Carbon Dioxide 22 mmol/L (22-30); Chloride 108 mmol/L (98-107); Estimated Glomerular Filt Rate 55; Glucose 105 mg/dL (65-110); Potassium 4.2 mmol/L (3.4-5.0); Sodium 137 mmol/L (137-145)
== END 2023-06-24 10:18 | disposition home or self-care (01) ==
LOC: ANHLAB 10:20
PROVIDERS: PCP Nurse Practitioner Family; Visit Provider Nurse Practitioner Family
DX: A04.72 Enterocolitis due to Clostridium difficile, not specified as recurrent (principal)
CPT/HCPCS: 36415; 80053; 85027

== ENCOUNTER 2023-08-25 17:25 | Outpatient (CLI) | payer OTHER, SELFPAY ==
[2023-08-25 20:47] LABS: Toxigenic C. Diff NEGATIVE (NEGATIVE)
== END 2023-08-25 17:26 | disposition home or self-care (01) ==
LOC: ANHLAB 17:28
PROVIDERS: PCP Nurse Practitioner Family; Visit Provider Nurse Practitioner Family
DX: R19.7 Diarrhea, unspecified (principal)
CPT/HCPCS: 87493

== ENCOUNTER 2023-09-13 01:23 | Day surgery (SDC) | payer OTHER, SELFPAY ==
[2023-09-05 12:01] VITALS: BMI 29.1
--- NOTE | 2023-09-05 12:47 | PC.NURSE ---
Spoke with PATIENT regarding medication BRILINTA. Pt. verbalizes understanding that the last dose of BRILINTA is to be taken on 09/08/2023 and the Endoscopist will instruct them when to restart after the procedure.
[2023-09-13] VITALS (9 sets, daily range): BP systolic 86–123; BP diastolic 52–71; PULSE 50–64; RESP 18; TEMP 36.1; O2SAT 98–100
[2023-09-13] MEDS: LACTATED RINGERS 1,000 ML 150 ML IV CONT (09:43)
--- NOTE | 2023-09-13 09:49 | WPDANESEPPF ---
Anes - Initial Pre Proc Eval Procedure: Operation Date: 09/13/23 10:30 Proposed Procedures p Esophagogastroduodenoscopy & Colonoscopy - Álvaro Bruce MD Date/Time: 09/13/23 09:49 Surgeon: Álvaro Bruce MD Pre Op Diagnosis: Eructation, GERD,hemorrhage of anus/rectum Patient Data Age: 72 Gender: F Height: 1.65 m Weight: 81.5 kg Last Vital Signs Temp 96.9 F L 09/13/23 09:29 Pulse 64 09/13/23 09:29 Resp 18 09/13/23 09:29 BP 104/56 L 09/13/23 09:29 Pulse Ox 100 09/13/23 09:29 O2 Del Method Room Air 09/13/23 09:29 Allergies Allergy/AdvReac Type Severity Reaction Status Date / Time No Known Allergies Allergy Verified 09/13/23 09:20 Home Medications Medication Instructions Recorded Confirmed Type aspirin 81 mg tablet,delayed 81 mg PO DAILY 04/08/20 09/13/23 History release metoprolol succinate 25 mg 25 mg PO DAILY 10/05/21 09/13/23 History tablet,extended release 24 hr ticagrelor 60 mg tablet (Brilinta) 60 mg PO Q12H 10/05/21 09/13/23 History cholecalciferol (vitamin D3) 125 5,000 mcg PO DAILY 05/27/22 09/13/23 History mcg (5,000 unit) disintegrating tablet meloxicam 15 mg tablet 15 mg PO DAILY #90 tabs 06/08/22 09/13/23 Rx spironolactone 25 mg tablet 25 mg PO DAILY 06/23/22 09/13/23 History tizanidine 4 mg tablet See Rx Instructions .Route 10/21/22 09/13/23 Rx .COMPLEX #180 tabs triamcinolone acetonide 0.1 % 1 applic topical BID #60 mL 12/30/22 09/13/23 Rx lotion albuterol sulfate 90 mcg/actuation See Rx Instructions .Route 02/25/23 09/13/23 Rx breath activated powder inhaler .COMPLEX #1 insert (ProAir RespiClick) omeprazole 20 mg capsule,delayed See Rx Instructions .Route 02/25/23 09/13/23 Rx release .COMPLEX #180 caps ondansetron 4 mg disintegrating 4 mg PO Q8H PRN nausea and 03/09/23 09/13/23 Rx tablet vomiting #14 tabs hydrocodone 5 mg-acetaminophen 325 1 tablet PO Q8H PRN pain #90 tabs 05/24/23 09/13/23 Rx mg tablet atorvastatin 40 mg tablet 40 mg PO DAILY #90 tabs 06/20/23 09/13/23 Rx zolpidem 10 mg tablet 10 mg PO QHS #30 tabs 06/29/23 09/13/23 Rx escitalopram oxalate 20 mg tablet 20 mg PO DAILY #90 tabs 07/14/23 09/13/23 Rx furosemide 20 mg tablet 20 mg PO DAILY #90 tabs 07/14/23 09/13/23 Rx hydrocortisone 2.5 % topical cream 1 applic RECTAL BID PRN 08/09/23 09/13/23 Rx with perineal applicator hemorrhoids #30 grams cholestyramine (with sugar) 4 gram 4 g PO BID PRN Diarrhea 09/05/23 09/13/23 History oral powder (Questran) hydrocortisone 2.5 % topical cream See Rx Instructions .Route 09/05/23 09/13/23 History .COMPLEX PRN Rash sacubitril 97 mg-valsartan 103 mg 1 tablet PO BID 09/05/23 09/13/23 History tablet (Entresto) aripiprazole 2 mg tablet (Abilify) See Rx Instructions .Route .COMPLEX 09/13/23 09/13/23 History Patient hx anesthesia problems: none Family hx anesthesia problems: none Results Review: All pre-operative results and documents have been reviewed as part of the pre-operative evaluation. [facility] Past Medical History Medical History ASHD (arteriosclerotic heart disease) BRBPR (bright red blood per rectum) CAD (coronary artery disease) Cervical radiculopathy due to degenerative joint disease of spine CHF (congestive heart failure) COVID-19 Diarrhea Eczema Essential (primary) hypertension GERD (gastroesophageal reflux disease) Hyperlipidemia Osteoarthritis Vitamin D deficiency Surgical History Surgical History H/O angioplasty H/O: hysterectomy Family History Family History Mother Diabetes mellitus COPD (chronic obstructive pulmonary disease) Father Acute myocardial infarction Sibling Carcinoma of colon with metastasis Sibling Diabetes mellitus Social Histo
--- NOTE | 2023-09-13 09:51 | PM.HPGS ---
History of Present Illness History of Present Illness Consent: Risks, benefits, and alternatives have been discussed and questions answered. Patient agrees to proceed with procedure. Chief complaint: Eructation, GERD,hemorrhage of anus/rectum Narrative: Rosemary Singh is a 72 year old female with gerd on omeprazole, also had C diff x2 and noted blood in stools from hemorrhoids, now asymptomatic but needs a colonoscopy Review of Systems Review of Systems: All systems reviewed & are unremarkable except as noted in HPI and below PMFSH Past Medical History Medical History ASHD (arteriosclerotic heart disease) BRBPR (bright red blood per rectum) CAD (coronary artery disease) Cervical radiculopathy due to degenerative joint disease of spine CHF (congestive heart failure) COVID-19 Diarrhea Eczema Essential (primary) hypertension GERD (gastroesophageal reflux disease) Hyperlipidemia Osteoarthritis Vitamin D deficiency Surgical History Surgical History H/O angioplasty H/O: hysterectomy Family History Family History Mother Diabetes mellitus COPD (chronic obstructive pulmonary disease) Father Acute myocardial infarction Sibling Carcinoma of colon with metastasis Sibling Diabetes mellitus Social History Social History Smoking status: Never smoker Alcohol intake: current Substance use: never Substance use type: does not use Lack of Transportation: No Lack of Food: Never True Current Housing: I Have Housing Concerned About Future Housing: No Difficulty Paying Gas/Electric Bills: No Difficulty Paying for Meds: No Currently Unemployed: No Education: High School Diploma/GED Difficulty w/ Childcare or Family Care: No Living arrangements: with family Spiritual care concerns: No Meds Home Medications and Allergies Home Medications Medication Instructions Recorded Confirmed Type aspirin 81 mg tablet,delayed 81 mg PO DAILY 04/08/20 09/13/23 History release metoprolol succinate 25 mg 25 mg PO DAILY 10/05/21 09/13/23 History tablet,extended release 24 hr ticagrelor 60 mg tablet (Brilinta) 60 mg PO Q12H 10/05/21 09/13/23 History cholecalciferol (vitamin D3) 125 5,000 mcg PO DAILY 05/27/22 09/13/23 History mcg (5,000 unit) disintegrating tablet meloxicam 15 mg tablet 15 mg PO DAILY #90 tabs 06/08/22 09/13/23 Rx spironolactone 25 mg tablet 25 mg PO DAILY 06/23/22 09/13/23 History tizanidine 4 mg tablet See Rx Instructions .Route 10/21/22 09/13/23 Rx .COMPLEX #180 tabs triamcinolone acetonide 0.1 % 1 applic topical BID #60 mL 12/30/22 09/13/23 Rx lotion albuterol sulfate 90 mcg/actuation See Rx Instructions .Route 02/25/23 09/13/23 Rx breath activated powder inhaler .COMPLEX #1 insert (ProAir RespiClick) omeprazole 20 mg capsule,delayed See Rx Instructions .Route 02/25/23 09/13/23 Rx release .COMPLEX #180 caps ondansetron 4 mg disintegrating 4 mg PO Q8H PRN nausea and 03/09/23 09/13/23 Rx tablet vomiting #14 tabs hydrocodone 5 mg-acetaminophen 325 1 tablet PO Q8H PRN pain #90 tabs 05/24/23 09/13/23 Rx mg tablet atorvastatin 40 mg tablet 40 mg PO DAILY #90 tabs 06/20/23 09/13/23 Rx zolpidem 10 mg tablet 10 mg PO QHS #30 tabs 06/29/23 09/13/23 Rx escitalopram oxalate 20 mg tablet 20 mg PO DAILY #90 tabs 07/14/23 09/13/23 Rx furosemide 20 mg tablet 20 mg PO DAILY #90 tabs 07/14/23 09/13/23 Rx hydrocortisone 2.5 % topical cream 1 applic RECTAL BID PRN 08/09/23 09/13/23 Rx with perineal applicator hemorrhoids #30 grams cholestyramine (with sugar) 4 gram 4 g PO BID PRN Diarrhea 09/05/23 09/13/23 History oral powder (Questran) hydrocortisone 2.5 % topical cream See Rx Instructions .Route 09/05/23
--- NOTE | 2023-09-13 10:07 | SUR.OPER ---
EGD: [id number] COLON: Start 1007
--- NOTE | 2023-09-13 10:56 | SUR.PHASEII ---
Patient fell while getting dressed. Fall was unwitnessed. Patient states she got dizzy and fell on her knees and left shoulder. Patient states she doesn't think she hit her head . Vital signs were taken and charted. [employer], charge nurse, this RN and Dr. Morgan went in the room with the patient. Nurse support services manager, warehouse delivery manager and spouse were made aware of the fall. is now in the room with the patient. The patient wishes to go to the ER to be assessed. The ER was notified patient will be brought over by GI RN. Patient is on Brilinta and Dr. Arango was made aware of fall.
== END 2023-09-13 11:05 | disposition home or self-care (01) ==
PROVIDERS: PCP Nurse Practitioner Family; Visit Provider Internal Medicine Gastroenterology
PROC: 0DJ08ZZ Inspection of Upper Intestinal Tract, Via Natural or Artificial Opening Endoscopic (ICD-10-PCS; CPT 43235; principal; 2023-09-13 10:30)
DX: K57.30 Diverticulosis of large intestine without perforation or abscess without bleeding (principal); K64.8 Other hemorrhoids; K29.50 Unspecified chronic gastritis without bleeding; I25.10 Atherosclerotic heart disease of native coronary artery without angina pectoris; I11.0 Hypertensive heart disease with heart failure; I50.9 Heart failure, unspecified; E78.5 Hyperlipidemia, unspecified; K21.9 Gastro-esophageal reflux disease without esophagitis; E55.9 Vitamin D deficiency, unspecified; Z79.82 Long term (current) use of aspirin; Z79.51 Long term (current) use of inhaled steroids; Z79.01 Long term (current) use of anticoagulants; Z79.891 Long term (current) use of opiate analgesic
CPT/HCPCS: 45378; 43239; 36415; 70450; 71046; 72125; 73030; 73080; 73562; 80053; 81003; 83735; 84484; 85025; 88305; 99284; J2704; J7120

== ENCOUNTER 2023-09-13 11:08 | Emergency (ER) | payer OTHER, SELFPAY ==
--- NOTE | ~2023-09-13 | XR_ITS ---
EXAMINATION: XR shoulder LT min 2V DATE: 09/13/2023 12:59 INDICATION: Left shoulder pain. Fall. TECHNIQUE: 4 views of left shoulder were obtained. COMPARISON: None. FINDINGS: Bone alignment is normal. No fracture. Joint spaces are normal. IMPRESSION: 1. Normal left shoulder. Reviewed, dictated and finalized at location A. IMPRESSION: 1. Normal left shoulder.
--- NOTE | ~2023-09-13 | XR_ITS ---
EXAMINATION: XR chest 2V DATE: 09/13/2023 12:14 INDICATION: Syncope. TECHNIQUE: Frontal and lateral views of the chest were obtained. COMPARISON: Chest 2 views 04/16/2022 FINDINGS: Calcified lung nodules and calcified hilar and mediastinal lymph nodes are consistent with old granulomatous disease. There is no pneumonia, pleural effusion, or pneumothorax. Cardiomegaly is noted. IMPRESSION: 1. Cardiomegaly. Reviewed, dictated and finalized at location A. IMPRESSION: 1. Cardiomegaly.
--- NOTE | ~2023-09-13 | XR_ITS ---
EXAMINATION: XR knee LT 3V DATE: 09/13/2023 12:59 INDICATION: Left knee pain. Fall. TECHNIQUE: 3 views of left knee were obtained. COMPARISON: Left knee radiographs 08/30/17 FINDINGS: Bone alignment is normal. No fracture. There is mild osteoarthritis of medial and lateral c ompartments and moderate osteoarthritis of patellofemoral compartment. No knee joint effusion. IMPRESSION: 1. Moderate left knee osteoarthritis. Reviewed, dictated and finalized at location A.
--- NOTE | ~2023-09-13 | XR_ITS ---
EXAMINATION: XR elbow LT min 3V DATE: 09/13/2023 12:59 INDICATION: Left elbow pain. Fall. TECHNIQUE: 4 views of left elbow were obtained. COMPARISON: None. FINDINGS: Bone alignment is normal. No fracture. Joint spaces are normal. No elbow joint effusion. IMPRESSION: 1. No fracture. Reviewed, dictated and finalized at location A. IMPRESSION: 1. No fracture.
--- NOTE | ~2023-09-13 | CT_ITS ---
EXAMINATION: CT cervical spine wo con DATE: 09/13/2023 12:29 INDICATION: Neck injury. TECHNIQUE: Computed tomography (CT) of the cervical spine was performed without intravenous contrast. Automated exposure control and iterative reconstruction technique were employed. The dose-length pro duct was 645.23 mGy-cm. COMPARISON: None FINDINGS: Calcified mediastinal lymph nodes are consistent with old granulomatous disease. There is 5 degrees dextrocurvature of cervical spine. There is hypolordosis of cervical spine. Vertebral body h eights are normal. There is a 10 mm sclerotic lesion in C3 vertebral body. There is severely decrease d disc height at C5-C6 and mildly decreased disc height at C6-C7. The following disc levels are speci fically discussed: C2-C3: There is mild bilateral uncovertebral joint osteoarthritis. There is moderate bilateral facet joint osteoarthritis. There is no neural foraminal stenosis. There is no central canal stenosis. C3-C4: There is mild bilateral uncovertebral joint osteoarthritis. There is moderate right and severe left facet joint osteoarthritis. There is no neural foraminal stenosis. There is no central canal st enosis. C4-C5: There is no uncovertebral joint osteoarthritis. There is severe left facet joint osteoarthriti s. There is no neural foraminal stenosis. There is no central canal stenosis. C5-C6: There is severe bilateral uncovertebral joint osteoarthritis. There is severe right and modera te left facet joint osteoarthritis. There is mild bilateral neural foraminal stenosis. There is mild central canal stenosis. C6-C7: There is mild left uncovertebral joint osteoarthritis. There is mild right and severe left fac et joint osteoarthritis. There is no neural foraminal stenosis. There is mild central canal stenosis. C7-T1: There is no uncovertebral joint osteoarthritis. There is mild right and moderate left facet martin int osteoarthritis. There is no neural foraminal stenosis. There is no central canal stenosis. IMPRESSION: 1. No fracture. 2. Severe cervical spondylosis. 3. Sclerotic lesion in C3 vertebral body, which may be a hemangioma or less likely metastatic disease . Consider bone scan. Reviewed, dictated and finalized at location A. IMPRESSION: 1. No fracture. 2. Severe cervical spondylosis. 3. Sclerotic lesion in C3 vertebral body, which may be a hemangioma or less lik sara metastatic disease. Consider bone scan.
--- NOTE | ~2023-09-13 | XR_ITS ---
EXAMINATION: XR knee RT 3V DATE: 09/13/2023 12:59 INDICATION: Right knee pain. Fall. TECHNIQUE: 3 views of right knee were obtained. COMPARISON: Right knee radiographs 11/27/2020 FINDINGS: Bone alignment is normal. No fracture. There is mild osteoarthritis of medial and lateral c ompartments and severe osteoarthritis of patellofemoral compartment. No knee joint effusion. There ar e loose bodies in the knee joint and in a Alexandre's cyst. IMPRESSION: 1. Severe right knee osteoarthritis. 2. Right knee joint loose bodies. Reviewed, dictated and finalized at location A.
--- NOTE | ~2023-09-13 | CT_ITS ---
EXAMINATION: CT brain wo con DATE: 09/13/2023 12:28 INDICATION: Dizziness. Fall. TECHNIQUE: Computed tomography (CT) of the head was performed without intravenous contrast. The mA wa s adjusted according to patient size. Iterative reconstruction technique was employed. The dose-lengt h product was 756.67 mGy-cm. COMPARISON: None FINDINGS: There is no intracranial hemorrhage, acute infarction, or abnormal intracranial mass lesion . The ventricles are normal in size. The orbits are normal. There is mild mucosal thickening in the p aranasal sinuses. The mastoid air cells are normal. There are multiple calcified masses in the scalp, likely old hematomas. IMPRESSION: 1. Normal brain. Reviewed, dictated and finalized at location A. IMPRESSION: 1. Normal brain.
[2023-09-13 11:13] VITALS: BP 109/60; PULSE 51; RESP 20; TEMP 36.6; O2SAT 99
--- NOTE | 2023-09-13 11:45 | ECG_ITS ---
SEE SCANNED COPY FOR CONFIRMED REPORT MTDD
[2023-09-13 11:47] VITALS: BP 104/62; BP 99/65; PULSE 52; PULSE 58
[2023-09-13 11:48] VITALS: BP 108/69; PULSE 62
--- NOTE | 2023-09-13 12:01 | ED.DIZZY ---
HPI - Dizziness General Chief Complaint: Dizziness Stated Complaint: fall Time Seen by Provider: 09/13/23 11:58 History of Present Illness HPI Narrative: Patient is a 72-year-old female with history of coronary artery disease with prior PCI, known ejection fraction of 35% here after syncopal episode after colonoscopy in our facility. Patient states that she did a MiraLax bowel prep last night, was feeling a bit dehydrated this morning but otherwise normal. She reportedly tolerated her colonoscopy well and is not having any abdominal pain. She was in recovery in the PACU and was getting dressed when she states that she felt lightheaded and woke up on the floor. She believes she fell down onto her left side and is currently having some left shoulder pain, left elbow pain, bilateral knee pain. She is additionally having some left-sided neck pain. She denies any prodromal chest pain or shortness of breath. She is currently feeling back to her normal self with no lightheadedness, dizziness, chest pain, shortness of breath. She denies any abdominal pain. She notes her colonoscopy was for bleeding hemorrhoids and recurrent C.diff. On review of anesthesia record from today it appears she had etomidate and propofol for her sedation. She looks to have received 300 ml of LR. Her forest fire fighters dispatcher previously were Dr. Muhammad and Dr. Meléndez however neither of them are with a practice any longer, is going to be following with Dr. Beck from here moving forward. Related Data Home Medications Medication Instructions Recorded Confirmed aspirin 81 mg tablet,delayed 81 mg PO DAILY 04/08/20 09/13/23 release metoprolol succinate 25 mg 25 mg PO DAILY 10/05/21 09/13/23 tablet,extended release 24 hr ticagrelor 60 mg tablet (Brilinta) 60 mg PO Q12H 10/05/21 09/13/23 cholecalciferol (vitamin D3) 125 5,000 mcg PO DAILY 05/27/22 09/13/23 mcg (5,000 unit) disintegrating tablet spironolactone 25 mg tablet 25 mg PO DAILY 06/23/22 09/13/23 cholestyramine (with sugar) 4 gram 4 g PO BID PRN Diarrhea 09/05/23 09/13/23 oral powder (Questran) hydrocortisone 2.5 % topical cream See Rx Instructions .Route 09/05/23 09/13/23 .COMPLEX PRN Rash sacubitril 97 mg-valsartan 103 mg 1 tablet PO BID 09/05/23 09/13/23 tablet (Entresto) aripiprazole 2 mg tablet (Abilify) See Rx Instructions .Route .COMPLEX 09/13/23 09/13/23 Allergies Allergy/AdvReac Type Severity Reaction Status Date / Time No Known Allergies Allergy Verified 09/13/23 09:20 Review of Systems Review of Systems: All systems reviewed & are unremarkable except as noted in HPI and below PMFSH Past Medical History Medical History ASHD (arteriosclerotic heart disease) BRBPR (bright red blood per rectum) CAD (coronary artery disease) Cervical radiculopathy due to degenerative joint disease of spine CHF (congestive heart failure) COVID-19 Diarrhea Eczema Essential (primary) hypertension GERD (gastroesophageal reflux disease) Hyperlipidemia Osteoarthritis Vitamin D deficiency Surgical History Surgical History H/O angioplasty H/O: hysterectomy Family History Family History Mother Diabetes mellitus COPD (chronic obstructive pulmonary disease) Father Acute myocardial infarction Sibling Carcinoma of colon with metastasis Sibling Diabetes mellitus Social History Social History Smoking status: Never smoker Alcohol intake: current Substance use: never Substance use type: does not use Lack of Transportation: No Lack of Food: Never True Current Housing: I Have Housing Concerned About Future Housing: No Difficulty Paying Gas/Electric Bills: No Difficulty Paying for Meds: No Currently Unemployed: No
[2023-09-13 12:18] LABS: Basophils Absolute Auto 0.1 K/mm3 (0.0-0.1); Basophils Percent Auto 0.7 % (0.2-1.2); Eosinophils Absolute Auto 0.2 K/mm3 (0-0.3); Eosinophils Percent Auto 2.4 % (0-4.4); Hematocrit 42.4 % (37.0-47.0); Hemoglobin 14.3 g/dL (12.0-15.0); Immature Granulocyte Absolute 0.04 K/mm3 (0.00-0.031); Immature Granulocyte Percent A 0.5 % (0-0.5); Lymphocytes Percent Auto 26.8 % (18.3-44.2); Mean Corpuscular HGB Conc 33.7 g/dl (32-36); Mean Corpuscular Hemoglobin 31.8 pg (26-34); Mean Corpuscular Volume 94.4 fl (80-100); Mean Platelet Volume 10.8 fl (7.4-10.4); Monocytes Absolute Auto 0.6 K/mm3 (0.1-0.6); Monocytes Percent Auto 7.2 % (2.6-8.5); Neutrophils Absolute Auto 5.4 K/mm3 (1.3-6.7); Neutrophils Percent Auto 62.4 % (45.5-73.1); Platelet Count Result 245 k/mm3 (150-375); Red Blood Count 4.49 M/mm3 (4.2-5.4); Red Cell Distribution Width 14.3 % (11.5-14.5); White Blood Count 8.6 K/mm3 (4.5-10.0)
[2023-09-13 12:27] LABS: Alanine Aminotransferase 26 U/L (6-35); Albumin Level 4.2 g/dL (3.5-5.1); Alkaline Phosphatase 54 U/L (38-126); Anion Gap 6 mmol/L (4-12); Aspartate Amino Transferase 27 U/L (14-36); Bilirubin,Total 0.9 mg/dL (0.2-1.3); Blood Urea Nitrogen 12 mg/dL (7-17); Calcium 9.5 mg/dL (8.4-10.2); Carbon Dioxide 24 mmol/L (22-30); Chloride 111 mmol/L (98-107); Estimated CRCL calculation 59 ml/min; Estimated Glomerular Filt Rate > 60; Glucose 97 mg/dL (65-110); Potassium 4.1 mmol/L (3.4-5.0); Sodium 141 mmol/L (137-145)
[2023-09-13 12:34] LABS: Magnesium 2.4 mg/dL (1.6-2.3)
[2023-09-13 12:43] LABS: Troponin I 0.013 ng/mL (0.000-0.034)
[2023-09-13 13:27] VITALS: BP 106/62; PULSE 65; RESP 17; O2SAT 100
--- NOTE | 2023-09-13 15:02 | ECG_ITS ---
SEE SCANNED COPY FOR CONFIRMED REPORT MTDD
[2023-09-13 15:05] VITALS: BP 119/66; PULSE 61; RESP 15; O2SAT 99
[2023-09-13 15:29] LABS: Troponin I 0.021 ng/mL (0.000-0.034)
[2023-09-13 17:07] VITALS: BP 113/63; PULSE 60; RESP 14; O2SAT 98
[2023-09-13 17:10] LABS: Appearance Urine Clear (Clear); Bilirubin Urine Negative (Negative); Blood Urine Negative (Negative); Color Urine Yellow (Yellow); Glucose Urine UA Negative (Negative); Ketones Urine Negative (Negative); Leukocyte Esterase Ur Negative LEU/UL (Negative); Nitrate Urine Negative (Negative); Protein Urine Negative (Negative); Specific Grav Ur 1.016 (1.001-1.035); Urobilinogen Urine 0.2 mg/dL (<2.0)
[2023-09-13 17:11] LABS: Add Urine Microscopic? NO
== END 2023-09-13 17:43 | disposition home or self-care (01) ==
PROVIDERS: Emergency Medicine; Emergency Provider Student in an Organized Health Care Education/Training Program; PCP Family Medicine
DX: R55 Syncope and collapse (principal); S80.01XA Contusion of right knee, initial encounter; S40.012A Contusion of left shoulder, initial encounter; I25.10 Atherosclerotic heart disease of native coronary artery without angina pectoris; I50.9 Heart failure, unspecified; I11.0 Hypertensive heart disease with heart failure; E78.5 Hyperlipidemia, unspecified; E55.9 Vitamin D deficiency, unspecified; K21.9 Gastro-esophageal reflux disease without esophagitis; M17.0 Bilateral primary osteoarthritis of knee; Z95.5 Presence of coronary angioplasty implant and graft; Z86.16 Personal history of COVID-19; Z90.710 Acquired absence of both cervix and uterus; Z79.899 Other long term (current) drug therapy; Z79.82 Long term (current) use of aspirin; R00.1 Bradycardia, unspecified; R94.31 Abnormal electrocardiogram [ECG] [EKG]; M47.812 Spondylosis without myelopathy or radiculopathy, cervical region; M89.9 Disorder of bone, unspecified; I51.7 Cardiomegaly; W18.39XA Other fall on same level, initial encounter
CPT/HCPCS: 36415; 70450; 71046; 72125; 73030; 73080; 73562; 80053; 81003; 83735; 84484; 85025; 93005; 99284

== ENCOUNTER 2023-11-28 09:57 | Outpatient (CLI) | payer OTHER, SELFPAY ==
[2023-11-28 12:03] LABS: Iron 82 ug/dL (37-170)
[2023-11-28 12:12] LABS: Folic Acid 5.4 ng/mL (2.76->20)
[2023-11-28 12:13] LABS: Percent Iron Saturation 25 % (20-50)
[2023-11-28 12:22] LABS: Free T4 Free Thyroxine 1.19 ng/mL (0.78-2.19); Vitamin D 25 Hydroxy 67.4 ng/mL
[2023-11-30 11:34] LABS: Vitamin B1 8 nmol/L (8-30)
== END 2023-11-28 09:58 | disposition home or self-care (01) ==
LOC: ANHLAB 10:02
PROVIDERS: PCP Nurse Practitioner Family; Visit Provider Nurse Practitioner Family
DX: E55.9 Vitamin D deficiency, unspecified (principal); G47.00 Insomnia, unspecified; L65.9 Nonscarring hair loss, unspecified; R53.83 Other fatigue; Z09 Encounter for follow-up examination after completed treatment for conditions other than malignant neoplasm
CPT/HCPCS: 36415; 82306; 82607; 82728; 82746; 83540; 83550; 84425; 84439; 84443

== ENCOUNTER 2024-02-04 10:52 | Observation (INO) | payer OTHER, SELFPAY ==
[2024-02-04] VITALS (24 sets, daily range): BP systolic 90–142; BP diastolic 60–107; PULSE 85–120; RESP 15–24; TEMP 36.3–36.6; O2SAT 94–100; BMI 27.4
--- NOTE | ~2024-02-04 | CT_ITS ---
Non-contrast Head CT History: Headache COMPARISON: 09/05/2023 Technique: Axial non-contrast imaging of the brain was performed. Dose reduction technique was used on this scan by utilizing automated exposure control and iterative reconstruction technique. The dose -length product (DLP) was 605.33 mGy-cm. Findings: There is no evidence of intracranial hemorrhage, mass lesion, or acute infarct. Brain par enchyma appears normal. The ventricles and subarachnoid spaces are normal in size. The calvarium ap pears normal. There is sinusitis involving the bilateral ethmoid air cells, left maxillary sinus, vick ateral sphenoid sinuses.. Impression: No intracranial abnormality seen. Sinus disease, as above. Reviewed, dictated and finalized at location . Impression: No intracranial abnormality seen. Sinus disease, as above.
--- NOTE | ~2024-02-04 | XR_ITS ---
EXAMINATION: XR chest 2V 02/04/2024 12:27 INDICATION: Chest pain and cold symptoms PROCEDURE: 2 view chest COMPARISON: Comparison to multiple prior studies sequentially, with oldest reviewed study dated 01/16. FINDINGS: The lungs are clear. The cardiomediastinal silhouette is within normal limits. There are no pleural effusions. There is no pneumothorax suspected. IMPRESSION: 1: NO ACUTE CARDIOPULMONARY DISEASE. Reviewed, dictated and finalized at location B.
--- NOTE | ~2024-02-04 | CT_ITS ---
CTA chest PE protocol Ordering provider: Susi Reyna MD History: 73 years Female with . CP, lighthead, tachycardic . Comparison: November 16, 2021 Technique: CT angiogram chest was performed following timed intravenous injection of contrast. Thin s lice axial images and reformatted coronal images were obtained. Three dimensional reformatted images of the chest were also obtained using a [employer] workstation. . Automated exposure control and iterati ve reconstruction technique were employed. The dose-length product was 337.55 mGy-cm. 100 mL Omnipaqu e 350 was given IV. Findings: PULMONARY ARTERIES: No pulmonary embolus. VISUALIZED THORACIC INLET: Normal. MEDIASTINUM: Aorta/coronary arteries: The thoracic aorta is normal. Heart/other: The heart is slightly enlarged.. Marked thickening of the interventricular septum. Thinn ing of the left ventricular wall is noted which may indicate old infarct. Echocardiography is advised . Lymph nodes: No mediastinal or hilar adenopathy. LUNGS: No pulmonary nodules or masses. No infiltrates or effusions. No pneumothorax. VISUALIZED UPPER ABDOMEN: Hypodensities in the left lobe of the liver with the largest measures 1.6 c m suggestive of small cysts. Small sliding hiatus hernia. Slightly prominent left adrenal gland. Othe rwise, the visualized upper abdomen is normal. MUSCULOSKELETAL: Soft tissues: The superficial soft tissues are normal. Bones: Age appropriate degenerative changes of the spine. IMPRESSION: 1. No pulmonary embolism. 2. No acute cardiopulmonary pathology. 3. Cardiomegaly with thickening of the interventricular septum. Echocardiography advised. 4. Hepatic cysts. 5. Small sliding hiatus hernia. Reviewed, dictated and finalized at location A. IMPRESSION: 1. No pulmonary embolism. 2. No acute cardiopulmonary pathology. 3. Cardiomegaly with thickening of the interventricular septum. Echocardiograp hy advised. 4. Hepatic cysts. 5. Small sliding hiatus hernia.
--- NOTE | 2024-02-04 10:57 | ECG_ITS ---
Test Date: 2024-02-04 11:01:35 Measurements Intervals [employer] Rate: 120 P: 0 HI: 0 QRS: 145 QRSD: 112 T: 56 QT: 305 QTc: 432 Interpretive Statements SINUS TACHYCARDIA WITH PVCS PREVIOUS INFEROLATERAL MYOCARDIAL INFARCTION WITH PERSISTENT ST SEGMENT ELEVATION ABNORMAL ECG No previous ECG available for comparison Electronically Signed On 02-05-2024 08:49:49 CDT by Angel Inman M.D.
[2024-02-04] MEDS: ASPIRIN 81 MG CHEWABLE TABLET 324 MG PO (11:12)
--- NOTE | 2024-02-04 11:13 | ED.ARRPALP ---
HPI - Arrhythmia/Palpitations General Chief Complaint: Arrhythmia/Palpitations Stated Complaint: irregular heart rate Time Seen by Provider: 02/04/24 11:17 History of Present Illness HPI narrative: 73-year-old female history of CAD, cardiomyopathy, hypertension, hyperlipidemia presenting with palpitations. Patient states that over the last couple days she has had some left-sided chest discomfort. Today she had palpitations so she went to urgent care who advised that she come to the ER for irregular heartbeat. EKG on arrival with atrial flutter with inferolateral elevations. Patient currently denies chest pain. Does report some lightheadedness. Related Data Home Medications Medication Instructions Recorded Confirmed aspirin 81 mg tablet,delayed 81 mg PO DAILY 04/08/20 02/04/24 release metoprolol succinate 25 mg 25 mg PO DAILY 10/05/21 02/04/24 tablet,extended release 24 hr ticagrelor 60 mg tablet (Brilinta) 60 mg PO Q12H 10/05/21 02/04/24 cholecalciferol (vitamin D3) 125 5,000 mcg PO DAILY 05/27/22 02/04/24 mcg (5,000 unit) disintegrating tablet spironolactone 25 mg tablet 25 mg PO DAILY 06/23/22 02/04/24 cholestyramine (with sugar) 4 gram 4 g PO BID PRN Diarrhea 09/05/23 02/04/24 oral powder (Questran) sacubitril 97 mg-valsartan 103 mg 1 tablet PO Q12H 09/05/23 02/04/24 tablet (Entresto) albuterol sulfate 90 mcg/actuation See Rx Instructions .Route 02/04/24 02/04/24 breath activated powder inhaler .COMPLEX PRN Shortness Of Breath (ProAir RespiClick) Or Wheezing atorvastatin 40 mg tablet 40 mg PO HS 02/04/24 02/04/24 fluticasone propionate 50 2 spray intranasal DAILY PRN 02/04/24 02/04/24 mcg/actuation nasal Allergy Symptoms spray,suspension (Flonase Allergy Relief) omeprazole 20 mg capsule,delayed 20 mg PO Q12H 02/04/24 02/04/24 release Allergies Allergy/AdvReac Type Severity Reaction Status Date / Time No Known Allergies Allergy Verified 11/17/23 08:23 Review of Systems Review of Systems: All systems reviewed & are unremarkable except as noted in HPI and below [facility] Past Medical History Medical History ASHD (arteriosclerotic heart disease) BRBPR (bright red blood per rectum) CAD (coronary artery disease) Cervical radiculopathy due to degenerative joint disease of spine CHF (congestive heart failure) COVID-19 Diarrhea Eczema Essential (primary) hypertension GERD (gastroesophageal reflux disease) Hyperlipidemia Osteoarthritis Vitamin D deficiency Surgical History Surgical History H/O angioplasty H/O: hysterectomy Family History Family History Mother Diabetes mellitus COPD (chronic obstructive pulmonary disease) Father Acute myocardial infarction Sibling Carcinoma of colon with metastasis Sibling Diabetes mellitus Social History Social History Smoking status: Never smoker Alcohol intake: never Substance use: never Substance use type: does not use Do You Feel Safe in your Home?: Yes Lack of Transportation: No Lack of Food: Never True Current Housing: I Have Housing Concerned About Future Housing: No Difficulty Paying Gas/Electric Bills: No Difficulty Paying for Meds: No Currently Unemployed: No Education: High School Diploma/GED Difficulty w/ Childcare or Family Care: No Living arrangements: with family Spiritual care concerns: No Exam Narrative: GENERAL: In no acute distress, pleasant cooperative HEAD: Normocephalic, atraumatic. EYES: PERRLA and EOMI. ENT: Mucous membranes moist. NECK: Supple. CHEST: Clear to auscultation. No respiratory distress. HEART: tachycardic, regular rhythm ABDOMEN: Soft, nontender, nondistended EXTREMITIES: Normal
[2024-02-04 11:18] LABS: Basophils Absolute Auto 0.1 K/mm3 (0.0-0.1); Basophils Percent Auto 0.5 % (0.2-1.2); Eosinophils Absolute Auto 0.2 K/mm3 (0-0.3); Eosinophils Percent Auto 1.5 % (0-4.4); Hematocrit 42.7 % (37.0-47.0); Hemoglobin 14.8 g/dL (12.0-15.0); Immature Granulocyte Absolute 0.04 K/mm3 (0.00-0.031); Immature Granulocyte Percent A 0.4 % (0-0.5); Lymphocytes Absolute Auto 2.98 K/mm3 (0.9-3.2); Lymphocytes Percent Auto 28.5 % (18.3-44.2); Mean Corpuscular HGB Conc 34.7 g/dl (32-36); Mean Corpuscular Hemoglobin 30.6 pg (26-34); Mean Corpuscular Volume 88.4 fl (80-100); Mean Platelet Volume 9.8 fl (7.4-10.4); Monocytes Absolute Auto 1.2 K/mm3 (0.1-0.6); Monocytes Percent Auto 11.8 % (2.6-8.5); Neutrophils Percent Auto 57.3 % (45.5-73.1); Platelet Count Result 340 k/mm3 (150-375); Red Blood Count 4.83 M/mm3 (4.2-5.4); Red Cell Distribution Width 13.3 % (11.5-14.5); White Blood Count 10.4 K/mm3 (4.5-10.0)
--- NOTE | 2024-02-04 11:20 | PC.NURSE ---
pt had a stent placed in 2008. pt had a MO in 2010
[2024-02-04 11:30] LABS: Alanine Aminotransferase 33 U/L (6-35); Albumin Level 4.3 g/dL (3.5-5.1); Alkaline Phosphatase 69 U/L (38-126); Anion Gap 9 mmol/L (4-12); Aspartate Amino Transferase 47 U/L (14-36); Blood Urea Nitrogen 27 mg/dL (7-17); Calcium 9.7 mg/dL (8.4-10.2); Carbon Dioxide 25 mmol/L (22-30); Chloride 103 mmol/L (98-107); Estimated CRCL calculation 42 ml/min; Estimated Glomerular Filt Rate 49; Glucose 121 mg/dL (65-110); INR 1.1; Lipase 58 U/L (23-300); Partial Thromboplastin Time 25.1 Seconds (22.3-36.8); Potassium 3.7 mmol/L (3.4-5.0); Prothrombin Time 14.5 Seconds (11.1-14.7); Sodium 137 mmol/L (137-145)
[2024-02-04] MEDS: SODIUM CHLORIDE 0.9% IV 1,000 ML 999 ML IV CONT (11:31)
[2024-02-04 11:42] LABS: Troponin I 0.022 ng/mL (0.000-0.034)
--- NOTE | 2024-02-04 13:20 | ECG_ITS ---
Test Date: 2024-02-04 13:28:16 Measurements Intervals [place] Rate: 86 P: 48 MN: 159 QRS: 115 QRSD: 113 T: 45 QT: 378 QTc: 454 Interpretive Statements SINUS RHYTHM WITH OCCASIONAL VENTRICULAR PREMATURE COMPLEXES INDETERMINATE AXIS PREVIOUS INFEROLATERAL MYOCARDIAL INFARCTION WITH PERSISTENT ST SEGMENT ELEVATION ABNORMAL ECG Compared to ECG 02/04/2024 11:01:35 HEART RATE REDUCED, NO OTHER SIGNIFICANT CHANGE Electronically Signed On 02-05-2024 08:54:12 CDT by Angel Inman M.D.
--- NOTE | 2024-02-04 16:30 | ECG_ITS ---
Test Date: 2024-02-04 16:36:23 Measurements Intervals [employer] Rate: 89 P: 49 MA: 163 QRS: -58 QRSD: 116 T: 53 QT: 380 QTc: 463 Interpretive Statements SINUS RHYTHM PREVIOUS INFEROLATERAL MYOCARDIAL INFARCTION WITH PERSISTENT ST SEGMENT ELEVATION ABNORMAL ECG Compared to ECG 02/04/2024 13:28:16 NO DIFFERENCE Electronically Signed On 02-05-2024 08:55:28 CDT by Angel Inman M.D.
[2024-02-04 17:11] LABS: Troponin I 0.021 ng/mL (0.000-0.034)
--- NOTE | 2024-02-04 17:52 | PM.IMHP ---
H&P: HPI History of Present Illness Date/Time: 02/04/24 17:52 Chief Complaint: Chest pain Narrative: 73-year-old female with PMHx: Of CAD, cardiomyopathy, HTN, hyperlipidemia, reported to the emergency room with complaint of ongoing left-sided chest discomfort, she reports having palpitation this morning citing that she went to the urgent care where they advised her to come to the ER for ongoing irregular heartbeat. Patient tells me that for the past 3 days she has been having ongoing increased fatigue and weakness along with ongoing left-sided discomfort. She reports mild SOB when her chest pain occurs, she denies any nausea vomiting fevers or chills. Miss Birmingham reports an extensive cardiac history revealing she has had 2 stents in the past. Initial ED Work-up reveals: Initial EKG on arrival showed sinus tachycardia with ST elevations in lead 2 3 AVF, V5, V6 STEMI was called/canceled cardiology was consulted EKG advised hydration and rate control suspect the worsening ST elevations related to tachycardia and demand ischemia patient denied chest pain or SOB, fluids were continued, CXR showed no acute abnormalities due to tachycardia and reports of lightheadedness along with intermittent chest pain and SOB CTA was obtained which showed no pulmonary embolus, serial troponin were negative, patient admitted in the setting of unstable(angina) chest pain, condition guarded, IMU, cardiology following patient. Review of Systems Review of Systems: All systems reviewed & are unremarkable except as noted in HPI and below PMFSH Past Medical History Medical History ASHD (arteriosclerotic heart disease) BRBPR (bright red blood per rectum) CAD (coronary artery disease) Cervical radiculopathy due to degenerative joint disease of spine CHF (congestive heart failure) COVID-19 Diarrhea Eczema Essential (primary) hypertension GERD (gastroesophageal reflux disease) Hyperlipidemia Osteoarthritis Vitamin D deficiency Surgical History Surgical History H/O angioplasty H/O: hysterectomy Family History Family History Mother Diabetes mellitus COPD (chronic obstructive pulmonary disease) Father Acute myocardial infarction Sibling Carcinoma of colon with metastasis Sibling Diabetes mellitus Social History Social History Smoking status: Never smoker Alcohol intake: never Substance use: never Substance use type: does not use Do You Feel Safe in your Home?: Yes Lack of Transportation: No Lack of Food: Never True Current Housing: I Have Housing Concerned About Future Housing: No Difficulty Paying Gas/Electric Bills: No Difficulty Paying for Meds: No Currently Unemployed: No Education: High School Diploma/GED Difficulty w/ Childcare or Family Care: No Living arrangements: with family Spiritual care concerns: No Meds Home Medications and Allergies Home Medications Medication Instructions Recorded Confirmed Type aspirin 81 mg tablet,delayed 81 mg PO DAILY 04/08/20 02/04/24 History release metoprolol succinate 25 mg 25 mg PO DAILY 10/05/21 02/04/24 History tablet,extended release 24 hr ticagrelor 60 mg tablet (Brilinta) 60 mg PO Q12H 10/05/21 02/04/24 History cholecalciferol (vitamin D3) 125 5,000 mcg PO DAILY 05/27/22 02/04/24 History mcg (5,000 unit) disintegrating tablet spironolactone 25 mg tablet 25 mg PO DAILY 06/23/22 02/04/24 History furosemide 20 mg tablet 20 mg PO DAILY #90 tabs 07/14/23 02/04/24 Rx cholestyramine (with sugar) 4 gram 4 g PO BID PRN Diarrhea 09/05/23 02/04/24 History oral powder (Questran) sacubitril 97 mg-valsartan 103 mg 1 tablet PO Q12H 09/05/23 02/04/24 History tablet (Entresto) escitalopram ox
--- NOTE | 2024-02-04 18:22 | ADMGEN ---
This patient, Rosemary Singh, was admitted to IMU Room 201-01 @ 1822. Patient/family oriented to hospital policies and general routines including ID bracelet, bed and alarms, visiting hours, pain management, procedures, bathroom and other care routines, personal items, smoking policy, room service/diet, and visiting hours. Information on how to activate the Rapid Response Team has been discussed. Patient/Family are encouraged to report perceived risks to care and to ask questions if they do not understand what they are told or what they should do.
[2024-02-04] MEDS: ZOLPIDEM TARTRATE (*CRX) 5 MG TABLET 10 MG PO (23:59)
[2024-02-04] MEDS: TICAGRELOR 60 MG TABLET PO (23:59)
[2024-02-04] MEDS: ATORVASTATIN 40 MG TABLET PO (23:59)
[2024-02-04] MEDS: SACUBITRIL/VALSARTAN 97-103 MG TABLET 1 TAB PO (23:59)
[2024-02-05] VITALS (14 sets, daily range): BP systolic 98–128; BP diastolic 49–71; PULSE 89–112; RESP 16–20; TEMP 36.6–37.7; O2SAT 94–100
[2024-02-05] MEDS: LORATADINE 10 MG TABLET PO
[2024-02-05 05:06] LABS: Basophils Percent Auto 0.5 % (0.2-1.2); Eosinophils Absolute Auto 0.1 K/mm3 (0-0.3); Eosinophils Percent Auto 1.8 % (0-4.4); Hematocrit 35.3 % (37.0-47.0); Hemoglobin 12.1 g/dL (12.0-15.0); Immature Granulocyte Absolute 0.03 K/mm3 (0.00-0.031); Immature Granulocyte Percent A 0.4 % (0-0.5); Lymphocytes Absolute Auto 1.94 K/mm3 (0.9-3.2); Lymphocytes Percent Auto 26.3 % (18.3-44.2); Mean Corpuscular HGB Conc 34.3 g/dl (32-36); Mean Corpuscular Hemoglobin 30.9 pg (26-34); Mean Corpuscular Volume 90.1 fl (80-100); Mean Platelet Volume 9.8 fl (7.4-10.4); Monocytes Absolute Auto 0.8 K/mm3 (0.1-0.6); Monocytes Percent Auto 11.4 % (2.6-8.5); Neutrophils Absolute Auto 4.4 K/mm3 (1.3-6.7); Neutrophils Percent Auto 59.6 % (45.5-73.1); Platelet Count Result 258 k/mm3 (150-375); Red Blood Count 3.92 M/mm3 (4.2-5.4); Red Cell Distribution Width 13.2 % (11.5-14.5); White Blood Count 7.4 K/mm3 (4.5-10.0)
[2024-02-05 05:28] LABS: Alanine Aminotransferase 32 U/L (6-35); Albumin Level 3.3 g/dL (3.5-5.1); Alkaline Phosphatase 63 U/L (38-126); Anion Gap 6 mmol/L (4-12); Aspartate Amino Transferase 36 U/L (14-36); Blood Urea Nitrogen 15 mg/dL (7-17); Calcium 8.6 mg/dL (8.4-10.2); Carbon Dioxide 24 mmol/L (22-30); Chloride 106 mmol/L (98-107); Estimated CRCL calculation 58 ml/min; Estimated Glomerular Filt Rate > 60; Glucose 99 mg/dL (65-110); Potassium 3.5 mmol/L (3.4-5.0); Sodium 136 mmol/L (137-145)
[2024-02-05 05:48] LABS: Thyroid Stimulating Hormone Reflex 0.899 uIU/mL (0.465-4.68)
[2024-02-05] MEDS: SPIRONOLACTONE 25 MG TABLET PO (08:19)
[2024-02-05] MEDS: CHOLECALCIFEROL 1,000 UNITS TABLET 5000 UNITS PO (08:21)
[2024-02-05] MEDS: TICAGRELOR 60 MG TABLET PO (08:21)
[2024-02-05] MEDS: PANTOPRAZOLE 40 MG TABLET PO (08:21)
[2024-02-05] MEDS: FUROSEMIDE 20 MG TABLET PO (08:21)
[2024-02-05] MEDS: ARIPiprazole 5 MG TABLET PO (08:21)
[2024-02-05] MEDS: ESCITALOPRAM OXALATE 10 MG TABLET 20 MG PO (08:21)
[2024-02-05] MEDS: METOPROLOL SUCCINATE EXT REL 25 MG TABCR PO (08:21)
[2024-02-05] MEDS: SACUBITRIL/VALSARTAN 97-103 MG TABLET 1 TAB PO (08:21)
[2024-02-05] MEDS: OFLOXACIN 0.3% OPHTH SOLN 5 ML BTL 10 DROP EACH EAR (08:22)
--- NOTE | 2024-02-05 09:10 | PM.IMPN ---
Progress Note: A&P Assessment and Plan (1) Hyperlipidemia: Qualifiers: Hyperlipidemia type: unspecified Qualified Code(s): E78.5 - Hyperlipidemia, unspecified Code(s): E78.5 - Hyperlipidemia, unspecified Status: Acute (2) Essential (primary) hypertension: Code(s): I10 - Essential (primary) hypertension Status: Acute (3) CAD (coronary artery disease): Code(s): I25.10 - Atherosclerotic heart disease of [place] coronary artery without angina pectoris Status: Acute (4) Chest pain: Code(s): R07.9 - Chest pain, unspecified Status: Acute (5) Palpitations: Code(s): R00.2 - Palpitations Status: Acute (6) GERD (gastroesophageal reflux disease): Code(s): K21.9 - Gastro-esophageal reflux disease without esophagitis Status: Acute (7) Tinnitus of right ear: Code(s): H93.11 - Tinnitus, right ear Status: Acute (8) Perforated right tympanic membrane on examination: Code(s): H72.91 - Unspecified perforation of tympanic membrane, right ear Status: Acute Plan this is a 73-year-old female presented with left-sided chest discomfort and palpitations. She was noted to have irregular heartbeat in the urgent care and hence was sent to the ER for evaluation. EKG on arrival showed Sinus tachycardia with inferolateral ST elevations in lead 2 3 AVF V5 V6 STEMI alert was called. EKG was reviewed with the export freight specialist and noted she had persistent ST elevation in inferolateral leads from prior cardiac events. STEMI alert was canceled. Chest x-ray with no acute abnormalities. CTA was obtained which showed no PE. Serial troponin will obtain which was negative. Patient admitted for observation. CTA showed cardiomegaly with thickening of the interventricular septum. Echocardiogram is ordered. Cardiology has been consulted. extensive cardiac history with cardiomyopathy Hypertension Hyperlipidemia Coronary artery disease status post stents Cervical radiculopathy GERD Tinnitus of right ear noted to have perforated tympanic membrane. Follow-up with ENT as outpatient basis/PCP. CT head with no acute abnormality but findings of sinusitis. Treat with Augmentin course Code status full code DVT prophylaxis Lovenox Subjective Date/time seen: 02/05/24 09:10 Interval history: chart reviewed. No overnight events reported. Discussed with the nursing staff . no chest pain Shortness of breath, bleeding from right ear Review of Systems Review of Systems: All systems reviewed & are unremarkable except as noted in HPI and below Exam Narrative: GENERAL: In no acute distress, pleasant cooperative HEAD: Normocephalic, atraumatic. EYES: PERRLA and EOMI. NECK: Supple. ENT:right ear canal with dried blood, TM seems to be perforated CHEST: Clear to auscultation. No respiratory distress. HEART: regular rate, regular rhythm ABDOMEN: Soft, nontender, nondistended EXTREMITIES: Normal range of motion SKIN: Warm, dry, no rash. NEURO: No focal deficits. Alert and oriented x3. PSYCH: Normal mood and affect. Objective Data Vital Signs Vital Signs: Vital Signs - 24 hr 02/04/24 10:58 02/04/24 11:17 02/04/24 11:18 Temperature 97.4 F L 97.7 F Pulse Rate 120 H 117 H 110 H Respiratory Rate 20 16 Blood Pressure 112/73 91/64 L Pulse Oximetry 100 98 Oxygen Delivery Room Air 02/04/24 11:29 02/04/24 11:15 02/04/24 11:16 Temperature Pulse Rate 109 H 112 H 119 H Respiratory Rate 18 18 15 Blood Pressure 90/64 L 105/72 91/78 L Pulse Oximetry 98 99 100 Oxygen Delivery 02/04/24 11:19 02/04/24 11:28 02/04/24 11:31 Temperature Pulse Rate 116 H 104 H 100 Respiratory Rate 16 24 H 19 Blood Pressure 91/64 L 90/64 L 97/69 L Pulse Oximetry 99 96 97 Oxygen Delivery 02/04/24 11:46 02/04/24 12:01 02/04/24 13:16 Temperature Pulse Rate 85 92 86 Respiratory Rate 17 18 20 Blood Pressure 108/64 105/68 100/70
--- NOTE | 2024-02-05 10:08 | PM.CNCAR ---
Assessment and Plan Assessment and plan (1) CAD (coronary artery disease): Code(s): I25.10 - Atherosclerotic heart disease of [place] coronary artery without angina pectoris Status: Acute (2) Tachycardia: Code(s): R00.0 - Tachycardia, unspecified Status: Acute Plan this is a 73-year-old lady with known chronic stable coronary artery disease with previous large inferolateral infarction back in [address] segment elevation and deep Q-waves in those leads. This was mistaken yesterday as evidence of STEMI. She was not in is not having any significant ischemic chest pain. She was rather tachycardic when she got to the hospital but this was sinus tachycardia not a situation where there was atrial flutter or atrial fibrillation which I believe was of some concern as well. She is stable clinically there is no evidence of ACS with a series of negative troponin levels. In my opinion she can be discharged for follow-up with our office. She will now be seen in the office by Dr. Beck and has her 1st appointment with her in March. Angel Inman MD [facility] History of Present Illness History of Present Illness Consult date/time: 02/05/24 10:08 Reason For Visit: chest pains, palpitations Narrative: this is a 73-year-old woman I am seeing at the request of the hospitalist the order says because of chest pain although she is not really reporting any chest pain at this time. She still has a long history of ischemic heart disease, previous infarction and previous percutaneous revascularization with reduced ejection fraction. She came to this hospital through the emergency room yesterday because she was feeling unwell with symptoms of a headache as well as symptoms of palpitations and the sense that her heart was beating rapidly. Upon arrival she was by ECG was in sinus tachycardia although some interpreted as were indicating evidence of atrial flutter. The patient was evaluated in the emergency room was initially felt to be having a acute ST segment elevation [place] because of the appearance of her electrocardiogram although on further review that was found to be unchanged from previous tracings and she was not having any chest pain and so the STEMI emergency was canceled. The patient is feeling relatively well this morning and does not have any complaints her troponin levels were negative x3 sets after they were drawn yesterday. She has a history of coronary disease dating back to 2008 at which time she underwent emergency stenting of the right coronary artery in the setting of acute [place] and according to the chart she also around the same time underwent PCI with stenting to the LAD and the 2nd diagonal branch. Her previous physician has since retired and she had been followed by our practice in recent years. She has a history of reduced left ventricular systolic function with ejection fractions that have been over the years between 35 and 45% for this she is on appropriate guideline directed medical therapy. Her electrocardiograms and telemetry strips have been personally reviewed by myself she is in sinus rhythm the whole time she has been here. She has a significantly stressful family life with a difficult relationship between herself and [id number] and grandchildren. The patient's electrocardiogram is significantly abnormal with sinus rhythm deep Q-waves in the inferior and lateral leads with persistent ST segment elevation in those leads as well. in addition to this above-described history she states that she had a bloody discharge from her right ear on of this past week. This is very unusual and was also stressing her. I do not believe she has been referred to a outpatient dietitian for evaluation of this but that would seen reasonable/appropriate Review of Systems Constitutional: Constitutional: Reports fatigue Eyes: Eyes: Reports no additional eye complaints ENT: Reports system reviewed and no ad
--- NOTE | 2024-02-05 11:12 | PM.DS ---
DS: Admitting Diagnosis Discharge Date 02/05/2024 Admitting Diagnosis Palpitation DS: Discharge Diagnosis Discharge Diagnosis (1) Hyperlipidemia: Qualifiers: Hyperlipidemia type: unspecified Qualified Code(s): E78.5 - Hyperlipidemia, unspecified Code(s): E78.5 - Hyperlipidemia, unspecified Status: Acute (2) Essential (primary) hypertension: Code(s): I10 - Essential (primary) hypertension Status: Acute (3) CAD (coronary artery disease): Code(s): I25.10 - Atherosclerotic heart disease of [place] coronary artery without angina pectoris Status: Acute (4) Chest pain: Code(s): R07.9 - Chest pain, unspecified Status: Acute (5) Palpitations: Code(s): R00.2 - Palpitations Status: Acute (6) GERD (gastroesophageal reflux disease): Code(s): K21.9 - Gastro-esophageal reflux disease without esophagitis Status: Acute (7) Tinnitus of right ear: Code(s): H93.11 - Tinnitus, right ear Status: Acute (8) Perforated right tympanic membrane on examination: Code(s): H72.91 - Unspecified perforation of tympanic membrane, right ear Status: Acute DS: Summary Hospital Course Hospital Course: this is a 73-year-old female presented with left-sided chest discomfort and palpitations. She was noted to have irregular heartbeat in the urgent care and hence was sent to the ER for evaluation. EKG on arrival showed Sinus tachycardia with inferolateral ST elevations in lead 2 3 AVF V5 V6 STEMI alert was called. EKG was reviewed with the can feeder and noted she had persistent ST elevation in inferolateral leads from prior cardiac events. STEMI alert was canceled. Chest x-ray with no acute abnormalities. CTA was obtained which showed no PE. Serial troponin will obtain which was negative. Patient admitted for observation. CTA showed cardiomegaly with thickening of the interventricular septum. Echocardiogram is ordered. Cardiology has been consulted. Okay per Cardiology to discharge. Extensive cardiac history with cardiomyopathy Hypertension Hyperlipidemia Coronary artery disease status post stents Cervical radiculopathy GERD Tinnitus of right ear noted to have perforated tympanic membrane. Follow-up with ENT as outpatient basis/PCP. CT head with no acute abnormality but findings of sinusitis. Treat with Augmentin course Code status full code DVT prophylaxis Lovenox Time Spent with Patient Time attestation: Total time spent providing and/or coordinating discharge services: 35 Exam Narrative: GENERAL: In no acute distress, pleasant cooperative HEAD: Normocephalic, atraumatic. EYES: PERRLA and EOMI. NECK: Supple. ENT:right ear canal with dried blood, TM seems to be perforated CHEST: Clear to auscultation. No respiratory distress. HEART: regular rate, regular rhythm ABDOMEN: Soft, nontender, nondistended EXTREMITIES: Normal range of motion SKIN: Warm, dry, no rash. NEURO: No focal deficits. Alert and oriented x3. PSYCH: Normal mood and affect. DS: Data Data Completed and Pending Labs on day of discharge: Labs from last 24 hours 02/05/24 02/04/24 02/04/24 04:47 16:43 13:58 WBC 7.4 RBC 3.92 L Hgb 12.1 Hct 35.3 L MCV 90.1 MCH 30.9 MCHC 34.3 RDW 13.2 Plt Count 258 MPV 9.8 Immature Gran % (Auto) 0.4 Neut % (Auto) 59.6 Lymph % (Auto) 26.3 [place] % (Auto) 11.4 H Eos % (Auto) 1.8 Baso % (Auto) 0.5 Lymph # (Auto) 1.94 [place] # (Auto) 0.8 H Eos # (Auto) 0.1 Baso # (Auto) 0.0 Abs Immat Gran (auto) 0.03 Absolute Neuts (auto) 4.4 Absolute Nucleated RBC 0.000 Nucleated RBC % 0.0 PT INR APTT Sodium 136 L Potassium 3.5 Chloride 106 Carbon Dioxide 24 Anion Gap 6 BUN 15 D Creatinine 0.80 Estim Creat Clear Calc 58 Estimated GFR > 60 Glucose 99 Calcium 8.6 Total Bilirubin 1.0 AST 36
--- NOTE | 2024-02-05 11:45 | PC.NURSE ---
Pt was given discharge instructions by this RN. Pt is waiting for ride at this time.
== END 2024-02-05 12:31 | disposition home or self-care (01) ==
LOC: ANHED 11:36 → ANHIMU 17:54
PROVIDERS: Emergency Medicine; Nurse Practitioner; Admitting Provider Internal Medicine; Emergency Provider Emergency Medicine; PCP Nurse Practitioner Family; Visit Provider Internal Medicine
DX: R07.89 Other chest pain (principal); R00.2 Palpitations; I25.10 Atherosclerotic heart disease of native coronary artery without angina pectoris; I25.9 Chronic ischemic heart disease, unspecified; I42.9 Cardiomyopathy, unspecified; I11.0 Hypertensive heart disease with heart failure; I50.9 Heart failure, unspecified; H93.11 Tinnitus, right ear; H72.91 Unspecified perforation of tympanic membrane, right ear; E78.5 Hyperlipidemia, unspecified; M19.90 Unspecified osteoarthritis, unspecified site; K21.9 Gastro-esophageal reflux disease without esophagitis; M54.12 Radiculopathy, cervical region; J32.9 Chronic sinusitis, unspecified; Z86.16 Personal history of COVID-19; Z79.82 Long term (current) use of aspirin; Z79.51 Long term (current) use of inhaled steroids; Z79.899 Other long term (current) drug therapy; Z95.5 Presence of coronary angioplasty implant and graft
CPT/HCPCS: 36415; 70450; 71046; 71275; 80053; 83690; 84443; 84484; 85025; 85610; 85730; 93005; 96360; 99285; A9270; G0378; J1644; J7030; Q9967

== ENCOUNTER 2024-03-06 11:08 | Outpatient (CLI) | payer OTHER, SELFPAY ==
[2024-03-06 11:42] LABS: Basophils Percent Auto 0.6 % (0.2-1.2); Eosinophils Absolute Auto 0.1 K/mm3 (0-0.3); Hemoglobin 13.3 g/dL (12.0-15.0); Immature Granulocyte Absolute 0.02 K/mm3 (0.00-0.031); Immature Granulocyte Percent A 0.3 % (0-0.5); Lymphocytes Absolute Auto 2.25 K/mm3 (0.9-3.2); Lymphocytes Percent Auto 35.2 % (18.3-44.2); Mean Corpuscular HGB Conc 33.3 g/dl (32-36); Mean Corpuscular Hemoglobin 30.6 pg (26-34); Monocytes Absolute Auto 0.6 K/mm3 (0.1-0.6); Monocytes Percent Auto 8.9 % (2.6-8.5); Neutrophils Absolute Auto 3.4 K/mm3 (1.3-6.7); Platelet Count Result 224 k/mm3 (150-375); Red Blood Count 4.35 M/mm3 (4.2-5.4); Red Cell Distribution Width 13.4 % (11.5-14.5); White Blood Count 6.4 K/mm3 (4.5-10.0)
[2024-03-06 11:55] LABS: Alanine Aminotransferase 22 U/L (6-35); Alkaline Phosphatase 58 U/L (38-126); Anion Gap 4 mmol/L (4-12); Aspartate Amino Transferase 30 U/L (14-36); Bilirubin,Total 0.8 mg/dL (0.2-1.3); Blood Urea Nitrogen 19 mg/dL (7-17); Calcium 9.5 mg/dL (8.4-10.2); Carbon Dioxide 30 mmol/L (22-30); Chloride 103 mmol/L (98-107); Cholesterol 140 mg/dL (0-200); Estimated Glomerular Filt Rate 55; Glucose 90 mg/dL (65-110); HDL Direct 56 mg/dL; Potassium 4.5 mmol/L (3.4-5.0); Sodium 137 mmol/L (137-145); Triglycerides 67 mg/dL (<150)
[2024-03-06 12:01] LABS: Hemoglobin A1C 5.3 % (<5.7)
[2024-03-06 12:06] LABS: LDL Cholesterol Direct 52 mg/dL
[2024-03-06 12:14] LABS: Vitamin D 25 Hydroxy 72.6 ng/mL
[2024-03-07 00:37] LABS: Add Urine Microscopic? YES; Appearance Urine Clear (Clear); Bacteria Urine None Seen /hpf; Bilirubin Urine Negative (Negative); Blood Urine Negative (Negative); Color Urine Yellow (Yellow); Glucose Urine UA Negative (Negative); Ketones Urine Negative (Negative); Leukocyte Esterase Ur 3+ LEU/UL (Negative); Nitrate Urine Negative (Negative); Non Pathogenic Casts 0-2; Protein Urine Negative (Negative); RBC Urine 0-2 /hpf (0-2); Specific Grav Ur 1.009 (1.001-1.035); Squamous Epithelial Cell Urine Few /hpf (Few); Urobilinogen Urine 0.2 mg/dL (<2.0)
== END 2024-03-06 11:09 | disposition home or self-care (01) ==
LOC: ANHLAB 11:11
PROVIDERS: PCP Nurse Practitioner Family; Visit Provider Nurse Practitioner Family
DX: R39.9 Unspecified symptoms and signs involving the genitourinary system (principal); I11.0 Hypertensive heart disease with heart failure; I50.9 Heart failure, unspecified; F41.9 Anxiety disorder, unspecified; F32.A Depression, unspecified; I25.10 Atherosclerotic heart disease of native coronary artery without angina pectoris; E78.5 Hyperlipidemia, unspecified; R73.02 Impaired glucose tolerance (oral); M19.09 Primary osteoarthritis, other specified site; E55.9 Vitamin D deficiency, unspecified; Z79.899 Other long term (current) drug therapy
CPT/HCPCS: 36415; 80053; 80061; 81001; 82306; 83036; 85025; 87086

== ENCOUNTER 2024-07-10 09:29 | Outpatient (CLI) | payer OTHER, SELFPAY ==
--- NOTE | ~2024-07-10 | XR_ITS ---
XR chest 2V Ordering provider: Tash Smith APRN History: 73 years Female with . R05.9 - Cough. NAUSEA, SOB, HEADACHE . Comparison: February 04, 2024 FINDINGS: MEDIASTINUM: The cardiac silhouette is not enlarged. LUNGS: No infiltrates, effusions or pneumothorax. OTHER: No free air under the diaphragm. Degenerative changes of the spine. Mild levoscoliosis. IMPRESSION: No acute cardiopulmonary pathology. Reviewed, dictated and finalized at location A.
[2024-07-10 10:24] LABS: Influenza A QL RT-PCR Positive (Negative); Influenza B QL RT-PCR Negative (Negative); RSV RNA, RT-PCR Negative (Negative); SARS-CoV-2 RNA PCR Negative (Negative)
--- OUTSIDE RECORDS SUMMARY | 2024-07-10 10:42 | XMS_ITS | Clinical Summary ---
Author Organization [facility] Address [address] [place] [address] Phone Care Team Providers Care Assembly And Packing Supervisor Name Role Phone Yonny Marion MD Primary Care Provider [phone] Allergies No known active allergies Medications furosemide (LASIX) 20 mg tablet 11/30/2013 Active simvastatin (ZOCOR) 40 mg tablet 11/30/2013 Active zolpidem (AMBIEN) 10 mg tablet 12/11/2013 Active metoprolol succinate (TOPROL XL) 25 mg Extended Release 24 hour tablet 11/15/2013 Active CARTIA XT 240 mg Controlled Delivery 24 hour capsule 09/25/2013 Active omeprazole (PRILOSEC) 20 mg Capsule, Delayed Release(E.C.) 09/25/2013 Activ e POTASSIUM CHLORIDE (KLOR-CON 10 ORAL) Take by mouth. Active aspirin (ECOTRIN EC) 81 mg Tablet, Delayed Release (E.C.) Take 81 mg by mouth daily. Active CALCIUM CARBONATE/VITAM IN D3 (VITAMIN D-3 ORAL) Take by mouth. Active HYDROcodone-timmy taminophen (NORCO) 5-325 mg tablet Take 1 Tab by mouth every 4 hours as needed. Active nitroglycerin (NITROSTAT) 0.4 mg Tablet, Sublingual Place 0.4 mg under tongue every 5 minutes as needed. Active Active Problems Patient Care Coordination No te Formatting of this note migh t be different from the original. Primary Care: Yonny Marion MD Referring Provider: Yonny Marion MD [address] [place] [id number] Other: Problem Noted Date Diagnosed Date Breast calcifications 11/30/2013 Arthritis Depression Acid reflux HTN (hypertension) Past heart attack Family History Medical History Relation Name Comments Diabetes Brother Cancer Maternal Grandfather bones Cancer Maternal Grandmother female organs Cancer Maternal Uncle throat Diabetes Mother Diabetes Sister 1 Diabetes Sister 2 Breast Cancer Neg Hx Ovarian Cancer Neg Hx Relation Name Status Comments Brother Maternal Grandfather Maternal Grandmother Maternal Uncle Mother Sister 1 Sister 2 Social History Tobacco Use Types Packs/Day Years Used Date Smoking Tobacco: Never Smokeless Tobacco: Never Alcohol Use Standard Drinks/Week Comments Yes 0 (1 standard drink = 0.6 oz pur e alcohol) rare Comments No Sex and Gender Information Value Date Recorded Sex Assigned at Not on file Legal Sex Female 9:18 AM CDT Gender Identity Not on file Sexual Orientation Not on file Occupation Industry Job Start Date Job End Date Not on file Not on file Not on file Not on file Last Filed Vital Signs Vital Sign Reading Time Taken Comments Blood Pressure 129/78 12/14/2013 8:43 AM CDT Pulse 60 12/14/2013 8:43 AM CDT Temperature - - Respiratory Rate - - Oxygen Saturation - - Inhaled Oxygen Concentration - - Weight 82.6 kg (182 lb) 12/14/2013 8:43 AM CDT Height 165.1 cm (5' 5 ) 12/14/2013 8:43 AM CDT Body Mass Index 30.29 12/14/2013 8:43 AM CDT Plan of Treatment Health Maintenance Due Date Last Done Comments DTAP/TDAP/TD VACCINES (1 - Tdap) 10/13/1970 COLORECTAL SCREENING 10/13/1996 Colorectal Cancer Screening 10/13/1996 FIT-DNA Q 3 years 10/13/1996 FIT/FOBT Q 1 year 10/13/1996 Flex Sig/CT Colonography Q 5 years 10/13/1996 PNEUMOCOCCAL VACCINE 50+ YEA RS (1 of 1 - PCV) 10/13/2001 ZOSTER VACCINE (1 of 2) 10/13/2001 BREAST CANCER SCREENING 12/14/2014 12/15/19 14, 11/27/2013, 04/06/2013, Additional history exists OSTEOPOROSIS SCREENING 10/13/2016 INFLUENZA VACCINE (#1) 2023 RSV VACCINE (60+ or ) (1 - 1-dose 75+ series) 10/13/2026 Procedures Procedure Name Priority Date/Time Associated Diagnosis Comments MAMMO DIAGNOSTIC UNI RIGHT W OR WO CAD Routine 12/14/2013 11:37 AM CDT Breast calcifications from Last 3 Months or Most Recently Relevant to Health Maintenance Results * MAMMO DIGITAL DIAG UNI RIGHT (12/14/2013 11:37 AM CDT) Anatomical Region Laterality Modality Breast Right Mammography 12/14/2013 11:3 1 AM CDT Impressions 12/17/2013 3:17 PM CDT IMPRESSION: Technically successful stereotactic core biopsy with tissue marker placement. Dictated from Maddi Moreno 12/17/2013 3:17 PM CDT VACUUM-ASSISTED CORE BIOPSY OF THE RIGHT BREAST UTILIZING STEREOTACTIC GUIDANCE AND SPECIMEN RADIOGRAPH. DATE: 12/14/13 HISTORY: Right breast calcifications. Stereotactic core biopsy has been recommended PROCEDURE AND FINDINGS: The risks and potential benefits of the procedure were discussed with the patient and written informed consent was obtained. The patient was placed in the prone position on the stereotactic table with the breast in craniocaudal compression and the area of interest was localized and targeted utilizing digital imaging with stereotaxis. After sterile preparation of the skin, 1% lidocaine was utilized for local anesthesia at the skin puncture site and 2% lidocaine with epinephrine was utilized for deeper local anesthesia/hemostasis about the biopsy site. The vacuum assisted biopsy needle was advanced to the level of the calcifications of interest from a craniocaudal approach utilizing stereotactic guidance and a total of 6 tissue cores were obtained. The specimen radiograph demonstrated that the calcifications of interest are included in the tissue cores. The needle was removed and hemostasis was achieved. A metallic clip was deployed into the biopsy cavity. Dermabond and steristrips were applied to the area for closure. An ice pack was applied to the site. A right breast mammogram was performed. On the postbiopsy study, the clip is 5.5 cm inferior to the level of the calcifications. Calcifications are seen again on the ML projection. However, on the CC view, the calcifications identified in this region on the previous exam have been removed. The calcifications in the upper aspect of the right breast are actually in the inner portion of the right breast. The patient tolerated the procedure well and there is no evidence of significant immediate complication. The patient was given verbal as well as written postprocedure instructions prior to release from the department. The tissue cores were submitted to surgical pathology in formalin for histological analysis. Procedure Note Rachel Donis MD - 12/17/2013 VACUUM-ASSISTED CORE BIOPSY OF THE RIGHT BREAST UTILIZING STEREOTACTIC GUIDANCE AND SPECIMEN RADIOGRAPH. DATE: 12/14/13 HISTORY: Right breast calcifications. Stereotactic core biopsy has been recommended PROCEDURE AND FINDINGS: The risks and potential benefits of the procedure were discussed with the patient and written informed consent was obtained. The patient was placed in the prone position on the stereotactic table with the breast in craniocaudal compression and the area of interest was localized and targeted utilizing digital imaging with stereotaxis. After sterile preparation of the skin, 1% lidocaine was utilized for local anesthesia at the skin puncture site and 2% lidocaine with epinephrine was utilized for deeper local anesthesia/hemostasis about the biopsy site. The vacuum assisted biopsy needle was advanced to the level of the calcifications of interest from a craniocaudal approach utilizing stereotactic guidance and a total of 6 tissue cores were obtained. The specimen radiograph demonstrated that the calcifications of interest are included in the tissue cores. The needle was removed and hemostasis was achieved. A metallic clip was deployed into the biopsy cavity. Dermabond and steristrips were applied to the area for closure. An ice pack was applied to the site. A right breast mammogram was performed. On the postbiopsy study, the clip is 5.5 cm inferior to the level of the calcifications. Calcifications are seen again on the ML projection. However, on the CC view, the calcifications identified in this region on the previous exam have been removed. The calcifications in the upper aspect of the right breast are actually in the inner portion of the right breast. The patient tolerated the procedure well and there is no evidence of significant immediate complication. The patient was given verbal as well as written postprocedure instructions prior to release from the department. The tissue cores were submitted to surgical pathology in formalin for histological analysis. IMPRESSION IMPRESSION: Technically successful stereotactic core biopsy with tissue marker placement. Dictated from Maddi Moreno us Allison Walker MD MAMMO ORDERABLES Final Result from Last 3 Months or Most Recently Relevant to Health Maintenance Care Teams Assembly And Packing Supervisor Relationship Specialty Start Date End Date Yonny Marion MD [address] [place] [id number] PCP - General Family Practice 12/14/13
--- OUTSIDE RECORDS SUMMARY | 2024-07-10 10:42 | XMS_ITS | Clinical Summary ---
Author Organization [facility] Address [address] [place] [address] Care Team Providers Care Fruit Or Nut Grower Name Role Phone Tash Smith KALEIGH Primary Care Provider [phone] Allergies No known active allergies Medications Calcium Carb-Cholecalcifer ol (CALCIUM CARBONATE-VITAMIN D3 OR) Take by mouth. Activ e benzonatate (TESSALON) 200 MG capsule Take 1 capsule (200 mg total) by mouth 3 (three) times daily as needed. FOR COUGH 05/31/19 24 Active atorvastatin (LIPITOR) 40 MG tablet 40 MG ORALLY DAILY Active hydrocortisone (ANUSOL-HC) 2.5 % rectal cream APPLY RECTALLY TO HEMORRHOIDS TWICE DAILY NEEDED DIRECTED FOR HEMORRHOIDS. NO MORE THAN 2 WEEKS 08/09/19 24 Active hydrocortisone 2.5 % cream APPLY A THIN FILM TO THE AFFECTED SKIN AND RUB IN GENTLY AND COMPLETELY TO FACE TWICE DAILY 09/22/19 24 Active Potassium Chloride 10 MEQ Pack Take by mouth. Act jennifer ondansetron (ZOFRAN-ODT) 4 MG disintegrating tablet DISSOLVE 1 TABLET ON THE TONGUE EVERY 8 HOURS NEEDED FOR NAUSEA OR VOMITING 03/09/20 23 Active omeprazole (PRILOSEC) 20 MG capsule Take 1 capsule (20 mg total) by mouth 2 (two) times daily. Active HYDROcodone-acetam inophen (NORCO) 5-325 MG tabletIndications: Acute Pain < 7 Day Supply Take 1 tablet by mouth every 6 (six) hours as needed. Indications: Acute Pain < 7 Day Supply 20 tablet 10/18/19 24 Active neomycin-bacitraci n-polymyxin (NEOSPORIN) 3.5-400-5000 ointment Apply topically 4 (four) times daily. 30 g 10/18/19 24 Active Active Problems Problem Noted Date Diagnosed Date Acid reflux 10/18/2023 Arthritis 10/18/2023 Depression 10/18/2023 HTN (hypertension) 10/18/2023 Past heart attack 10/18/2023 Cardiomyopathy, ischemic 11/18/2021 At risk for sudden cardiac 10/08/2021 Chronic combined systolic an d diastolic congestive heart failure ([facility]) 10/05/2021 Diaphoresis 09/24/2020 Chest discomfort 12/04/2019 SOB (shortness of breath) 12/04/2019 Anxiety and depression 01/30/2017 Essential hypertension 01/30/2017 Overview (10/18/2023): Last Assessment & Plan: Hypertension isat goal on med tx Obesity (BMI 30.0-34.9) 01/30/2017 Angina pectoris 01/08/2014 Overview (10/18/2023): Angina pectoris syndrome Obstructive sleep apnea syndrome 01/08/2014 Overview (10/18/2023): JAIME (obstructive sleep apnea) Breast calcifications 11/30/2013 Chronic ischemic heart disease 07/05/2013 Overview (10/18/2023): CHR ISCHEMIC HRT DIS NEC Last Assessment & Plan: Had Taku-tsubo type CM 10/2016, EF 40% Coronary artery disease of n ative artery of [place] heart with stable angina pectoris 07/05/2013 Overview (10/18/2023): CRNRY ATHRSCL NATVE VSSL 2008: RCA stent, D2 and LAD 10/2016: NonSTEMI, PCI mLAD and D1, EF 40% Last Assessment & Plan: 2008: RCA stent, D2 and LAD 10/2016: NonSTEMI, PCI mLAD and D1, EF 40% Doing well, rare stress-induced angina. RE-eval LV function Pure hypercholesterolemia 07/05/2013 Overview (10/18/2023): PURE HYPERCHOLESTEROLEM Last Assessment & Plan: Lipids are at goal on atorvastatn Status post percutaneous transluminal coronary a ngioplasty 07/05/2013 Overview (10/18/2023): STATUS-POST PTCA Immunizations Name Administration Dates Next Due Fluzone High Dose - >Age 65 (Prefilled Syringe) 02/13/2020 Influenza Adult (Generic) 12/08/2021,02/13/2020 Pneumococcal (Pneumovax 23) 10/02/2021 Tdap (Boostrix) 10/18/2023 Social History Tobacco Use Types Packs/Day Years Used Date Smoking Tobacco: Never Passive Smoke Exposure: Never Smokeless Tobacco: Never Tobacco Cessation:Counseling Given: No Alcohol Use Standard Drinks/Week Comments Never 0 (1 standard drink = 0.6 oz pur e alcohol) Comments Unknown Sex and Gender Information Value Date Recorded Sex Assigned at Not on file Legal Sex Female 8:49 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 Gender Identity Not on file Sexual Orientation Not on file Last Filed Vital Signs Vital Sign Reading Time Taken Comments Blood Pressure 134/76 10/18/2023 11:00 AM CDT Pulse 58 10/18/2023 10:17 AM CDT Temperature 36.7 C (98 F) 10/18/2023 10:17 AM CDT Respiratory Rate 16 10/18/2023 10:17 AM CDT Oxygen Saturation 97% 10/18/2023 11:00 AM CDT Inhaled Oxygen Concentration - - Weight 81.2 kg (179 lb) 10/18/2023 10:17 AM CDT Height - - Body Mass Index - - Plan of Treatment Health Maintenance Due Date Last Done Comments ASCVD LDL 1950 Colorectal Cancer Screening Colonoscopy (10 Years) 1950 PHQ-2 ([employer]ician [place]) 1963 Hepatitis C 10/13/1969 Mammogram Screening 1991 Zoster Vaccines (1 of 2) 10/13/2001 RSV Immunization or 60+ Years (1 - Risk 60-74 years 1-dose series) 2011 Annual Medicare Wellness Visit 10/13/2016 Dexa Scan (General) 10/13/2016 Pneumococcal Vaccine: 65+ Years (2 of 2 - PCV) 10/02/2022 10/02/2021 COVID-19 Vaccine ( season) 2023 10/02/2021, 02/03/2021, 06/19/2020, Additional history exists Influenza Adult (#1) 2024 12/08/2021, 02/13/2020, 02/13/2020 PHQ-2 ([employer]ician [place]) 04/18/2024 DTaP, Tdap and Td Vaccines (2 - Td or Tdap) 10/17/2033 10/18/2023 Meningococcal B Vaccine Aged Out No l onger eligible based on patient's age to complete this topic Meningococcal Vaccine Aged Out No joel irma eligible based on patient's age to complete this topic RSV Immunizations Under 20 Months Aged Out No longer eligible based on patient's age to complete this topic Insurance ESSENCE Care Teams Fruit Or Nut Grower Relationship Specialty Start Date End Date Tash [place] [address] [address] PCP - General Nurse Practitioner Family 10/18/23
--- OUTSIDE RECORDS SUMMARY | 2024-07-10 10:42 | XMS_ITS | Clinical Summary ---
Author Organization [facility] [address] Address [address] [place] [address] Care Team Providers Care Fulfillment Coordinator Name Role Phone Anson Andres MD Primary Care Provider [phone] Allergies No known active allergies Medications aspirin (ASPIR-81) 81 mg tablet take 1 tablet by oral route every day 0 0 013 Active zolpidem (AMBIEN) 10 mg tablet take 1 tablet by oral route every day at bedtime 0 0 013 Active HYDROcodone-acetaminoph en (NORCO) 5-325 mg per tablet take 1 tablet by oral route every 6 hours as needed for pain 0 0 Active Additional Information Patient not taking.Reported on 02/23/2024 cholecalciferol (VITAMIN D3) 5,000 unit tablet take 1 by Oral route once 0 0 014 Active TiZANidine (ZANAFLEX) 4 mg capsule take 1 capsule by oral route 2 times every day 0 0 017 Active Additional Information Patient not taking.Reported on 02/23/2024 escitalopram (LEXAPRO) 20 mg tablet take 1 tablet by oral route every day 0 0 017 Active omeprazole (PriLOSEC) 20 mg capsule Take 1 capsule (20 mg total) by mouth daily Active fluticasone propionate (FLONASE) 50 mcg/actuation nasal spray Active meloxicam (MOBIC) 15 mg tablet Take 1 tablet (15 mg total) by mouth daily Active furosemide (LASIX) 20 mg tabletIndications:Chron ic combined systolic and diastolic CHF (congestive heart failure) (HCC) Take 1 tablet (20 mg total) by mouth daily 90 tablet 3 022 Active atorvastatin (LIPITOR) 40 mg tabletIndications:Pure hypercholesterolemia Take 1 tablet (40 mg total) by mouth daily 90 tablet 3 022 Active ARIPiprazole (ABILIFY) 2 mg tablet Take 1 tablet (2 mg total) by mouth daily 023 Active sacubitriL-valsartan (ENTRESTO) 97-103 mg tabletIndications:chron ic heart failure Take 1 tablet by mouth 2 (two) times a day 180 tablet 3 023 Active ticagrelor (Brilinta) 60 mg tabletIndications:Coron ana artery disease of [place] artery of [place] heart with stable angina pectoris,Status post percutaneous transluminal coronary angioplasty Take 1 tablet (60 mg total) by mouth 2 (two) times a day 14 tablet 024 Active nitroglycerin (NITROSTAT) 0.[address] 1 tablet (0.4 mg total) under the tongue every 5 (five) minutes as needed for chest pain 25 tablet 2 024 Active Additional Information Patient not taking.Reported on 02/23/2024 acidophilus-pectin, citrus 100 million cell-10 mg capsule Take by mouth Active metoprolol XL (TOPROL-XL) 25 mg extended release tabletIndications:Coron ana artery disease of [place] artery of [place] heart with stable angina pectoris Take 1 tablet (25 mg total) by mouth daily 90 tablet 3 024 Active loratadine (CLARITIN) 10 mg tablet Take 1 tablet (10 mg total) by mouth daily as needed 024 Active spironolactone (ALDACTONE) 25 mg tabletIndications:Chron ic combined systolic and diastolic CHF (congestive heart failure) (HCC),Cardiomyopathy, ischemic TAKE 1 TABLET (25 MG TOTAL) BY MOUTH DAILY. 90 tablet 1 024 2024 Active amoxicillin-clavulanate (AUGMENTIN) 875-125 mg per tablet Take 1 tablet by mouth every 12 (twelve) hours Active cholestyramine (QUESTRAN) 4 gram packet Take 1 packet by mouth 3 (three) times a day with meals Active hydrocortisone 2.5 % cream APPLY A THIN FILM TO THE AFFECTED SKIN AND RUB IN GENTLY AND COMPLETELY TO FACE TWICE DAILY Active hydrocortisone (ANUSOL-HC) 2.5 % rectal cream APPLY TOPICALLY DAILY NEEDED FOR HEMORHHOIDS. DO NOT USE FOR MORE THAN 2 WEEKS AT A TIME. Active ipratropium (ATROVENT) 42 mcg (0.06 %) nasal spray USE 2 SPRAYS IN EACH NOSTRIL THREE TIMES DAILY NEEDED FOR ALLERGY SYMPTOMS Active albuterol (PROAIR RESPICLICK) 90 mcg/actuation inhaler Inhale 2 puffs every 6 (six) hours as needed for wheezing Active vvsrxdur-nfftxfealIl-ga lymyxnB 3.5-500-10,000 oc-zsfd-imtx ointment Apply topically 4 (four) times a day Active Active Problems Problem Noted Date Diagnosed Date Dysfunction of right eustachian tube 02/23/2024 Blood in ear canal, right 02/23/2024 Cardiomyopathy, ischemic 11/18/2021 At risk for sudden cardiac 10/08/2021 Chronic combined systolic an d diastolic CHF (congestive heart failure) 10/05/2021 Diaphoresis 09/24/2020 Chest discomfort 12/04/2019 SOB (shortness of breath) 12/04/2019 Essential hypertension 01/30/2017 Assessment & Plan (01/30/2017 1:50 PM CDT): Hypertension isat goal on med tx Anxiety and depression 01/30/2017 Obesity (BMI 30.0-34.9) 01/30/2017 Angina pectoris 01/08/2014 Overview (07/24/2016): Angina pectoris syndrome Obstructive sleep apnea syndrome 01/08/2014 Overview (07/24/2016): JAIME (obstructive sleep apnea) Chronic ischemic heart disease 07/05/2013 Overview (07/21/2016): CHR ISCHEMIC HRT DIS NEC Assessment & Plan (01/30/2017 1:48 PM CDT): Had Taku-tsubo type CM 10/2016, EF 40% Coronary artery disease of n ative artery of [place] heart with stable angina pectoris 07/05/2013 Overview (01/18/2017): CRNRY ATHRSCL NATVE VSSL 2008: RCA stent, D2 and LAD 10/2016: NonSTEMI, PCI mLAD and D1, EF 40% Assessment & Plan (01/18/2017 8:51 AM CDT): 2009: RCA stent, D2 and LAD 10/2016: NonSTEMI, PCI mLAD and D1, EF 40% Doing well, rare stress-induced angina. RE-eval LV function Pure hypercholesterolemia 07/05/2013 Overview (07/22/2016): PURE HYPERCHOLESTEROLEM Assessment & Plan (01/30/2017 1:48 PM CDT): Lipids are at goal on atorvastatn Status post percutaneous transluminal coronary a ngioplasty 07/05/2013 Overview (07/24/2016): STATUS-POST PTCA Resolved Problems Problem Noted Date Diagnosed Date Resolved Date Chronic coronary artery disease 01/08/2014 06/06/2018 Overview (07/24/2016): CAD (coronary artery disease) Hypertension 01/08/2014 01/30/2017 Overview (07/24/2016): HTN (hypertension) Overweight 01/08/2014 01/30/2017 Overview (07/24/2016): Overweight Immunizations Immunization Administration Dates Next Due Pfizer SARS-CoV-2 Monovalent Vaccination (12+ Yrs) PURPLE 06/19/2020,05/26/2020 Surgical History Surgery Date Site/Laterality Comments HYSTERECTOMY Hysterectomy Medical History Medical History Date Comments Hx Other Medical Sleep Apnea, CP AP, HTN, HLD, CAD, depression Hx Other Medical GERD, OA Depression Heart disease Recurrent sinus infections Tinnitus Ear problems HTN (hypertension) Family History Medical History Relation Name Comments Diabetes Brother Diabetes Sister Relation Name Status Comments Brother Sister Social History Tobacco Use Types Packs/Day Years Used Date Smoking Tobacco: Never Smokeless Tobacco: Never Tobacco Cessation:Counseling Given: Not Answered Alcohol Use Standard Drinks/Week Comments No 0 (1 standard drink = 0.6 oz pur e alcohol) Comments Unknown Sex and Gender Information Value Date Recorded Sex Assigned at Not on file Legal Sex Female 8:29 AM 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 GROUP WORK Gender Identity Not on file Sexual Orientation Not on file Obstetrics History Last Filed Vital Signs Vital Sign Reading Time Taken Comments Blood Pressure 114/70 10/31/2023 10:36 AM CDT Pulse 64 10/31/2023 10:36 AM CDT Temperature - - Respiratory Rate 18 02/23/2024 8:26 AM 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 GROUP WORK Oxygen Saturation 97% 10/31/2023 10:36 AM CDT Inhaled Oxygen Concentration - - Weight 77.6 kg (171 lb) 02/23/2024 8:26 AM 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 GROUP WORK Height 165.1 cm (5' 5 ) 02/23/2024 8:26 AM 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 GROUP WORK Body Mass Index 28.46 02/23/2024 8:26 AM 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 GROUP WORK Plan of Treatment Health Maintenance Due Date Last Done Comments Colon Cancer Screening-Colonoscopy 1950 Depression Screening 1950 Fall Risk Assessment 1950 Hepatitis C Screening 1950 Osteoporosis Screening-Bone Density Scan 1950 Hepatitis B Screening 10/13/1969 Zoster Vaccine (1 of 2) 10/13/2001 Breast Cancer Screening-Mammogram 04/03/2014 013, 11/03/2011 Well Visit 65+ 10/13/2016 Pneumococcal vaccine 65+ (2 of 2 - PCV) 10/02/2022 0 10/02/2021 Covid-19 Vaccine (3 - 2023- season) 12/18/202307/2020, 05/26/2020 Influenza Vaccine (#1) 2023 12/08/2021, 2019 DTaP/Tdap/Td Vaccine (2 - Td or Tdap) 10/17/203305/2023 Insurance Care Teams Fulfillment Coordinator Relationship Specialty Start Date End Date Anson Andres MD PCP - General Family Practice 01/04/23
--- OUTSIDE RECORDS SUMMARY | 2024-07-10 10:42 | XMS_ITS | Referral Summary ---
Author Organization [facility] [address] Address [address] [place] [address] Care Team Providers Care Hot Blast Worker Name Role Phone Anson Andres MD Primary Care Provider [phone] [phone] Allergies No known active allergies Medications aspirin [...] 60 mg tabletIndications:Coron ana artery disease of [place] artery of [place] heart with stable angina pectoris,Status post percutaneous [...] extended release tabletIndications:Coron ana artery disease of [place] artery of [place] heart with stable angina pectoris Take 1 [...] (six) hours as needed for wheezing Active atjiidej-dteljdeovMa-bs lymyxnB 3.5-500-10,000 qh-nswh-lyls ointment Apply topically 4 (four) times a [...] artery disease of [place]ive artery of [place] heart with stable angina pectoris 07/05/2013 Overview [...] SARS-CoV-2 Monovalent Vaccination (12+ Yrs) PURPLE 06/19/2020,05/26/2020 Social History Tobacco Use Types Packs/Day Years Used Date Smoking Tobacco: Never Smokeless Tobacco: Never Tobacco Cessation:Counseling Given: Not Answered Alcohol Use Standard Drinks/Week Comments No 0 (1 standard drink = 0.6 oz pur e alcohol) Comments Unknown Sex and Gender Information Value Date Recorded Sex Assigned at Not on file Legal Sex Female 8:29 AM ANTENNA SPECIALIST Gender Identity Not on file Sexual Orientation Not on file Last Filed Vital Signs Vital Sign Reading Time Taken Comments Blood Pressure 114/70 10/31/2023 10:36 AM CDT Pulse 64 10/31/2023 10:36 AM CDT Temperature - - Respiratory Rate 18 02/23/2024 8:26 AM ANTENNA SPECIALIST Oxygen Saturation 97% 10/31/2023 10:36 AM CDT Inhaled Oxygen Concentration - - Weight 77.6 kg (171 lb) 02/23/2024 8:26 AM ANTENNA SPECIALIST Height 165.1 cm (5' 5 ) 02/23/2024 8:26 AM ANTENNA SPECIALIST Body Mass Index 28.46 02/23/2024 8:26 AM ANTENNA SPECIALIST Plan of Treatment Not on file Insurance [facility] [facility] Care Teams Hot Blast Worker Relationship Specialty Start Date End Date Anson Andres MD PCP - General Family Practice 01/04/23
== END 2024-07-10 09:30 | disposition home or self-care (01) ==
LOC: ANHLAB 09:31
PROVIDERS: PCP Nurse Practitioner Family; Visit Provider Nurse Practitioner Family
DX: R50.9 Fever, unspecified (principal); R05.9 Cough, unspecified; Z20.822 Contact with and (suspected) exposure to COVID-19
CPT/HCPCS: 71046; 87637

== ENCOUNTER 2025-04-02 08:34 | Outpatient (CLI) | payer OTHER, SELFPAY ==
--- OUTSIDE RECORDS SUMMARY | 2025-04-02 08:00 | XMS_ITS | Encounter Summary ---
Author Organization [facility] Address [address] [place] [address] Care Team Providers Care Site Head Name Role Phone Anson Andres MD Primary Care Provider [phone] [phone] Reason for Referral * Cardiology (Routine) - Pending Review Specialty Diagnoses / Procedures Referred By Contac t Referred To Contact Diagnoses Chronic ischemic heart disease Coronary artery disease of [place] artery of [place] heart with stable angina pectoris Chronic combined systolic and diastolic CHF (congestive heart failure) (HCC) Procedures Transthoracic Echo (TTE) Complete W Doppler/CF Reji Dominguez MD [address] [facility] [address] [address] Phone: tel: fax: [facility] Cardiology [facility] State [address] [address] Phone: tel: fax: Referral ID Status Reason Start Date Expiration Date V isits Requested Visits Authorized [id number] Pending Review 04/02/2025 05/02/2026 1 1 M MACHINE OPERATOR Reason for Visit * Reason Comments Follow-up * Consultation (Routine) - Authorized Specialty Diagnoses / Procedures Referred By Contac t Referred To Contact Cardiology Diagnoses Atherosclerosis of [place] coronary artery without angina pectoris, unspecified whether [place] or transplanted heart Anson Andres MD [address] [place] [address] Phone: tel: fax: [facility] Cardiology [address] [place] [address] Phone: tel: fax: Referral ID Status Reason Start Date Expiration Date Visits Requested Visits Authorized [id number] Authorized Specialty Services Required 09/06/2024 09/07/2025 12 12 Encounter Details Date Type Department Care Team (Late st Contact Info) Description 04/02/2025 8:00 AM BROOM MACHINE OPERATOR Office Visit [facility] Cardiology [address] [place] [address] Reji Dominguez MD [address] [place], [place] [id number] Chronic ischemic heart disease (Primary Dx); Coronary artery disease of [place] artery of [place] heart with stable angina pectoris; Chronic combined systolic and diastolic CHF (congestive heart failure) (HCC); Pure hypercholesterolemia; Status post percutaneous transluminal coronary angioplasty; Cardiomyopathy, ischemic Social History Tobacco Use Types Packs/Day Years Used Date Smoking Tobacco: Never Smokeless Tobacco: Never Alcohol Use Standard Drinks/Week Comments No 0 (1 standard drink = 0.6 oz pur e alcohol) Comments Unknown Sex and Gender Information Value Date Recorded Sex Assigned at Not on file Legal Sex Female 8:29 AM BROOM MACHINE OPERATOR Gender Identity Not on file Sexual Orientation Not on file documented as of this encounter Last Filed Vital Signs Vital Sign Reading Time Taken Comments Blood Pressure 118/64 04/02/2025 7:54 AM BROOM MACHINE OPERATOR Pulse 65 04/02/2025 7:54 AM BROOM MACHINE OPERATOR Temperature - - Respiratory Rate 18 04/02/2025 7:54 AM BROOM MACHINE OPERATOR Oxygen Saturation 98% 04/02/2025 7:54 AM BROOM MACHINE OPERATOR Inhaled Oxygen Concentration - - Weight 85.7 kg (189 lb) 04/02/2025 7:54 AM BROOM MACHINE OPERATOR Height 165.1 cm (5' 5) 04/02/2025 7:54 AM BROOM MACHINE OPERATOR Body Mass Index 31.45 04/02/2025 7:54 AM BROOM MACHINE OPERATOR documented in this encounter Functional Status * BP Location Answer Date of Assessment Author Right arm 04/02/2025 7:54 AM BROOM MACHINE OPERATOR Anita Luu MA * BP Location Answer Date of Assessment Author Right arm 04/02/2025 7:54 AM BROOM MACHINE OPERATOR Anita Luu MA documented as of this encounter Ordered Prescriptions Prescription Sig Dispense Quantity Refills Last Filled Start Date End Date spironolactone (ALDACTONE) 25 mg tabletIndications:Chronic combined systolic and diastolic CHF (congestive heart failure) (HCC),Cardiomyopathy, ischemic Take 1 tablet (25 mg total) by mouth daily 90 tablet 3 5 04/02/20 ticagrelor (Brilinta) 60 mg tabletIndications:Coronar y artery disease of [place] artery of [place] heart with stable angina pectoris,Status post percutaneous transluminal coronary angioplasty Take 1 tablet (60 mg total) by mouth 2 (two) times a day 180 tablet 3 5 04/02/20 26 sacubitriL-valsartan (ENTRESTO) 97-103 mg tabletIndications:chronic heart failure Take 1 tablet by mouth 2 (two) times a day 180 tablet 3 5 04/02/20 nitroglycerin (NITROSTAT) 0.[address] 1 tablet (0.4 mg total) under the tongue every 5 (five) minutes as needed for chest pain 25 tablet 2 metoprolol XL (TOPROL-XL) 25 mg extended release tabletIndications:Coronar y artery disease of [place] artery of [place] heart with stable angina pectoris Take 1 tablet (25 mg total) by mouth daily 90 tablet 3 5 04/02/20 furosemide (LASIX) 20 mg tabletIndications:Chronic combined systolic and diastolic CHF (congestive heart failure) (HCC) Take 1 tablet (20 mg total) by mouth daily 90 tablet 3 5 04/02/20 atorvastatin (LIPITOR) 40 mg tabletIndications:Pure hypercholesterolemia Take 1 tablet (40 mg total) by mouth daily 90 tablet 3 aspirin (Aspir-81) 81 mg enteric coated tablet Take 1 tablet (81 mg total) by mouth nightly 90 tablet 3 5 04/02/20 documented in this encounter Progress Notes * Reji Dominguez MD - 04/02/2025 8:00 AM CST [facility] CARDIOLOGY CHIEF COMPLAINT / REASON FOR CONSULT: Follow up for coronary artery disease status post PCI and chronic systolic heart failure HISTORY: Rosemary Singh is a 74 y.o. female with coronary artery disease status post PCI, chronic systolic heart failure, JAIME on CPAP returns for follow up of her cardiac care. She denies any exertional chest discomfort. However when she is emotionally upset, she will have slight mi substernal chest pressure that lasts for a minute and spontaneously resolves on its own. She has not had to use any nitroglycerin sublingual tablets. She denies any orthopnea, paroxysmal nocturnal dyspnea, and syncopal events. She does have some mild palpitations associated with these events. She uses Lasix 20 mg about once a week. Exercise Tolerance: Ambulates without any cardiopulmonary limitations. Previously use a stationary bike at home. Plans on returning to the gym to start exercise regimen. Social: Family History: Medications: Aspirin 81 mg p.o. daily Brilinta 60 mg p.o. b.i.d. Atorvastatin 40 mg every evening Lasix 20 mg p.o. daily Toprol 25 mg p.o. daily Entresto 97-103 mg p.o. b.i.d. Spironolactone 25 mg p.o. daily REVIEW OF SYSTEMS: GENERAL: As per HPI CVS: As per HPI HEME: No bruising, no bleeding PHYSICAL EXAMINATION: BP 118/64 (BP Location: Right arm, Patient Position: Sitting) Pulse 65 Resp 18 Ht 165.1 cm (5' 5) Wt 85.7 kg (189 lb) SpO2 98% BMI 31.45 kg/m?? GENERAL: Alert, in no distress HEAD: Normocephalic and atraumatic EYES: Extraocular movement intact ENT: Unremarkable NECK: no jugular venous distention CHEST: Clear to auscultation, no wheezes, rales or rhonchi, symmetric air entry CARDIAC: Regular rate and rhythm, S1 S2 normal, no murmur, rub, heaves, thrills or gallops ABDOMEN: soft, nontender, no bruit EXTREMITIES: No edema PERIPHERAL PULSES: Peripheral pulses symmetrical SKIN: Warm and dry NEURO: Alert and oriented x 3 LABS: Lab Results Component Value Date CHOL 136 01/08/2014 Lab Results Component Value Date HDL 50 01/08/2014 No results found for: LDLCALC Lab Results Component Value Date TRIG 100 01/08/2014 No results found for: CHOLHDL No results found for: HGBA1C CARDIAC IMAGING RESULTS REVIEW: Echo 08/2022: LVEF 35%. Akinesis of apical segments. RV size and systolic function is normal. Left atrialsize is mildly dilated. No significant valvular abnormalities. Cardiac CT Stress Test Cardiac Monitors Cath 07/2017: patent LAD/Diagonal/RCA stents. Distal LAD 40%. Distal RCA 40%. ASSESSMENT/PLAN: 74 y.o. female with coronary artery disease status post PCI, chronic systolic heart failure, JAIME on CPAP returns for follow up of her cardiac care Coronary artery disease status post PCI -She has stable angina however as she starts her exercise regimen, we discussed that she may illicit worsening anginal symptoms with increased physical activity and that should she experience this, she should notify us immediately and we discussed symptoms that should prompt immediate attention -We did continue to encourage increased physical activity and exercise regimen -Continue aspirin 81 mg p.o. daily -She states that Brilinta may be cost prohibitive moving forward and we discussed that it has been years since her last PCI and it would not be unreasonable to switch over to Plavix 75 mg p.o. daily -She will touch base with the pharmacy to discuss the financial cost -Continue atorvastatin 40 mg every evening Chronic systolic heart failure -She is euvolemic on physical examination and her dry weight most likely is 189 lb -Similarly she has been receiving Entresto from [facility] who has stated that they now have a generic version for which she will be receiving from the pharmacy however she has not touch base with the pharmacy or tried to fill her medications yet -She will attempt to refill her medications from the pharmacy today and I have recent to scripts -I have also recommended a repeat transthoracic echocardiogram and should her left ventricular systolic function recovered, she can be switched over to losartan 50 mg p.o. daily if the Entresto is cost prohibitive -Continue Toprol 25 mg p.o. daily and spironolactone 25 mg p.o. daily -Lasix 20 mg p.o. daily Hypertension -Continue Entresto 97-103 mg p.o. b.i.d. and spironolactone 25 mg p.o. daily Return to clinic in 1 year Reji Dominguez MD Voice recognition software was used to complete this document, therefore, budget engineer variances may occur. M MACHINE OPERATOR documented in this encounter Plan of Treatment Scheduled Orders Name Type Priority Associated Diagnoses Order Schedule Transthoracic Echo (TTE) Complete W Doppler/CF Echocardiography Routine Chronic ischemic heart disease Coronary artery disease of [place] artery of [place] heart with stable angina pectoris Chronic combined systolic and diastolic CHF (congestive heart failure) (HCC) Expected: 04/02/2025 (Approximate), Expires: 07/01/2025 documented as of this encounter Visit Diagnoses Diagnosis Chronic ischemic heart disease- Primary Unspecified chronic ischemic heart disease Coronary artery disease of [place] artery of [place] heart with stable angina pectoris Chronic combined systolic and diastolic CHF (congestive heart failure) (HCC) Pure hypercholesterolemia Status post percutaneous transluminal coronary angioplasty Postsurgical percutaneous transluminal coronary angioplasty status Cardiomyopathy, ischemic Other specified forms of chronic ischemic heart disease documented in this encounter Discontinued Medications Medication Sig Discontinue Reason Start Date End Da te aspirin (ASPIR-81) 81 mg tablet take 1 tablet by oral route every day Reorder 01/30/2013 04/02/2025 furosemide (LASIX) 20 mg tabletIndications:Chronic combined systolic and diastolic CHF (congestive heart failure) (HCC) Take 1 tablet (20 mg total) by mouth daily Reorder 10/05/2021 04/02/2025 atorvastatin (LIPITOR) 40 mg tabletIndications:Pure hypercholesterolemia Take 1 tablet (40 mg total) by mouth daily Reorder 11/18/2021 04/02/2025 ticagrelor (Brilinta) 60 mg tabletIndications:Coronary artery disease of [place] artery of [place] heart with stable angina pectoris,Status post percutaneous transluminal coronary angioplasty Take 1 tablet (60 mg total) by mouth 2 (two) times a day Reorder 05/18/2023 04/02/2025 nitroglycerin (NITROSTAT) 0.[address] 1 tablet (0.4 mg total) under the tongue every 5 (five) minutes as needed for chest pain Reorder 06/06/2023 04/02/2025 metoprolol XL (TOPROL-XL) 25 mg extended release tabletIndications:Coronary artery disease of [place] artery of [place] heart with stable angina pectoris Take 1 tablet (25 mg total) by mouth daily Reorder 11/26/2024 04/02/2025 spironolactone (ALDACTONE) 25 mg tabletIndications:Chronic combined systolic and diastolic CHF (congestive heart failure) (HCC),Cardiomyopathy, ischemic TAKE 1 TABLET (25 MG TOTAL) BY MOUTH DAILY. Reorder 02/13/2025 04/02/2025 sacubitriL-valsartan (ENTRESTO) 97-103 mg tabletIndications:chronic heart failure Take 1 tablet by mouth 2 (two) times a day Reorder 03/21/2025 04/02/2025 documented as of this encounter Care Teams Site Head Relationship Specialty Start Date End Date Anson Andres MD PCP - General Family Practice 01/04/23 documented as of this encounter
--- OUTSIDE RECORDS SUMMARY | 2025-04-02 09:02 | XMS_ITS | Clinical Summary ---
Author Organization [facility] Address [address] [place] [address] Phone Care Team Providers Care Crystal Syrup Maker Name Role Phone Yonny Marion MD Primary Care Provider Allergies No known active allergies Medications furosemide [...] Marion MD Referring Provider: Yonny Marion MD [address] [place] [id number] Other: Problem Noted Date Diagnosed Date Breast [...] 8:43 AM CDT Height 165.1 cm (5' 5) 12/14/2013 8:43 AM CDT Body Mass Index [...] exists OSTEOPOROSIS SCREENING 10/13/2016 INFLUENZA VACCINE (#1) 2024 RSV VACCINE (60+ or ) (1 - [...] biopsy with tissue marker placement. Dictated from aMddi Moreno Allison Walker MD MAMMO ORDERABLES Final Result from Last 3 Months or Most Recently Relevant to Health Maintenance Care Teams Crystal Syrup Maker Relationship Specialty Start Date End Date Yonny Marion MD [address] [place] [id number] PCP - General Family Practice 12/14/13
--- OUTSIDE RECORDS SUMMARY | 2025-04-02 09:02 | XMS_ITS | Clinical Summary ---
Author Organization [facility] [address] [facility] [address] [place] [address] Care Team Providers Care Media Promoter Name Role Phone Anson Andres MD Primary Care Provider [phone] Allergies No known active allergies Medications zolpidem (AMBIEN) 10 mg tablet take 1 tablet by oral route every day at bedtime 0 0 013 Active cholecalciferol (VITAMIN D3) 5,000 unit tablet take 1 by Oral route once 0 0 014 Active escitalopram (LEXAPRO) 20 mg tablet take 1 tablet by oral route every day 0 0 017 Active omeprazole (PriLOSEC) 20 mg capsule Take 1 capsule (20 mg total) by mouth daily Active fluticasone propionate (FLONASE) 50 mcg/actuation nasal spray 022 Active meloxicam (MOBIC) 15 mg tablet Take 1 tablet (15 mg total) by mouth daily 022 Active ARIPiprazole (ABILIFY) 2 mg tablet Take 1 tablet (2 mg total) by mouth daily 023 Active acidophilus-pectin, citrus 100 million cell-10 mg capsule Take by mouth Active loratadine (CLARITIN) 10 mg tablet Take 1 tablet (10 mg total) by mouth daily as needed 024 Active amoxicillin-clavulanate (AUGMENTIN) 875-125 mg per tablet Take 1 tablet by mouth every 12 (twelve) hours 024 Active cholestyramine (QUESTRAN) 4 gram packet Take [...] (six) hours as needed for wheezing Active bnbjiyuo-fvdcxcxmxSc-dw lymyxnB 3.5-500-10,000 pa-vkil-ntzo ointment Apply topically 4 (four) times a day Active aspirin (Aspir-81) 81 mg enteric coated tablet Take 1 tablet (81 mg total) by mouth nightly 90 tablet 3 025 2025 Active atorvastatin (LIPITOR) 40 mg tabletIndications:Pure hypercholesterolemia Take 1 tablet (40 mg total) by mouth daily 90 tablet 3 Active furosemide (LASIX) 20 mg tabletIndications:Chron ic combined systolic and diastolic CHF (congestive heart failure) (HCC) Take 1 tablet (20 mg total) by mouth daily 90 tablet 3 025 2025 Active metoprolol XL (TOPROL-XL) 25 mg extended release tabletIndications:Coron ana artery disease of [place] artery of [place] heart with stable angina pectoris Take 1 tablet (25 mg total) by mouth daily 90 tablet 3 025 2025 Active nitroglycerin (NITROSTAT) 0.[address] 1 tablet (0.4 mg total) under the tongue every 5 (five) minutes as needed for chest pain 25 tablet 2 Active sacubitriL-valsartan (ENTRESTO) 97-103 mg tabletIndications:chron ic heart failure Take 1 tablet by mouth 2 (two) times a day 180 tablet 3 025 2025 Active ticagrelor (Brilinta) 60 mg tabletIndications:Coron ana artery disease of [place] artery of [place] heart with stable angina pectoris,Status post percutaneous transluminal coronary angioplasty Take 1 tablet (60 mg total) by mouth 2 (two) times a day 180 tablet 3 025 2025 Active spironolactone (ALDACTONE) 25 mg tabletIndications:Chron ic combined systolic and diastolic CHF (congestive heart failure) (HCC),Cardiomyopathy, ischemic Take 1 tablet (25 mg total) by mouth daily 90 tablet 3 025 2025 Active aspirin (ASPIR-81) 81 mg tablet take 1 tablet by oral route every day 0 0 013 2024 Disconti nued(Reo rder) furosemide (LASIX) 20 mg tabletIndications:Chron ic combined systolic and diastolic CHF (congestive heart failure) (HCC) Take 1 tablet (20 mg total) by mouth daily 90 tablet 3 022 2024 Disconti nued(Reo rder) atorvastatin (LIPITOR) 40 mg tabletIndications:Pure hypercholesterolemia Take 1 tablet (40 mg total) by mouth daily 90 tablet 3 022 2024 Disconti nued(Reo rder) sacubitriL-valsartan (ENTRESTO) 97-103 mg tabletIndications:chron ic heart failure Take 1 tablet by mouth 2 (two) times a day 180 tablet 3 023 2024 Disconti nued(Reo rder) ticagrelor (Brilinta) 60 mg tabletIndications:Coron ana artery disease of [place] artery of [place] heart with stable angina pectoris,Status post percutaneous transluminal coronary angioplasty Take 1 tablet (60 mg total) by mouth 2 (two) times a day 14 tablet 024 2024 Disconti nued(Reo rder) nitroglycerin (NITROSTAT) 0.[address] 1 tablet (0.4 mg total) under the tongue every 5 (five) minutes as needed for chest pain 25 tablet 2 024 2024 Disconti nued(Reo rder) metoprolol XL (TOPROL-XL) 25 mg extended release tabletIndications:Coron ana artery disease of [place] artery of [place] heart with stable angina pectoris Take 1 tablet (25 mg total) by mouth daily 90 tablet 1 025 2024 Disconti nued(Reo rder) spironolactone (ALDACTONE) 25 mg tabletIndications:Chron ic combined systolic and diastolic CHF (congestive heart failure) (HCC),Cardiomyopathy, ischemic TAKE 1 TABLET (25 MG TOTAL) BY MOUTH DAILY. 90 tablet 1 025 2024 Disconti nued(Reo rder) sacubitriL-valsartan (ENTRESTO) 97-103 mg tabletIndications:chron ic heart failure Take 1 tablet by mouth 2 (two) times a day 180 tablet 3 025 2024 Disconti nued(Reo rder) Active Problems Problem Noted Date Diagnosed Date [...] artery disease of [place]ive artery of [place] heart with stable angina pectoris 07/05/2013 Overview [...] (hypertension) Overweight 01/08/2014 01/30/2017 Overview (07/24/2016): Overweight Encounters Date Type Department Care Team Description 04/02/2025 8:00 AM CHEMICAL DEPENDENCY COUNSELOR Office Visit [facility] Cardiology [address] [place] [phone] Reji Dominguez MD Chronic ischemic heart disease (Primary Dx); Coronary artery disease of [place] artery of [place] heart with stable angina pectoris; Chronic combined systolic and diastolic CHF (congestive heart failure) (HCC); Pure hypercholesterolemia; Status post percutaneous transluminal coronary angioplasty; Cardiomyopathy, ischemic 03/20/2025 Telephone [facility] Cardiology [address] [place] [address] Reji Dominguez MD from Last 3 Months Immunizations Immunization Administration Dates Next Due Pfizer [...] on file Legal Sex Female 8:29 AM CHEMICAL DEPENDENCY COUNSELOR Gender Identity Not on file Sexual Orientation Not on file Last Filed Vital Signs Vital Sign Reading Time Taken Comments Blood Pressure 118/64 04/02/2025 7:54 AM CHEMICAL DEPENDENCY COUNSELOR Pulse 65 04/02/2025 7:54 AM CHEMICAL DEPENDENCY COUNSELOR Temperature - - Respiratory Rate 18 04/02/2025 7:54 AM CHEMICAL DEPENDENCY COUNSELOR Oxygen Saturation 98% 04/02/2025 7:54 AM CHEMICAL DEPENDENCY COUNSELOR Inhaled Oxygen Concentration - - Weight 85.7 kg (189 lb) 04/02/2025 7:54 AM CHEMICAL DEPENDENCY COUNSELOR Height 165.1 cm (5' 5) 04/02/2025 7:54 AM CHEMICAL DEPENDENCY COUNSELOR Body Mass Index 31.45 04/02/2025 7:54 AM CHEMICAL DEPENDENCY COUNSELOR Plan of Treatment Health Maintenance Due Date Last Done Comments Colon Cancer Screening-Colonoscopy 1950 Depression Screening 1950 Fall Risk Assessment 1950 Hepatitis C Screening 1950 Osteoporosis Screening-Bone Density Scan 1950 Hepatitis B Screening 10/13/1969 Zoster Vaccine (1 of 2) 10/13/2001 Breast Cancer Screening-Mammogram 04/03/2014 013, 11/03/2011 Well Visit 65+ 10/13/2016 Pneumococcal vaccine 65+ (2 of 2 - PCV) 10/02/2022 10/02/2021 Covid-19 Vaccine (5 - 2024-2 6 season) 2024 01/19/2024, 02/03/2021, 06/19/2020, Additional history exists Influenza Vaccine (#1) 2024 , 12/08/2021, 02/13/2020, Additional history exists DTaP/Tdap/Td Vaccine (2 - Td or Tdap) 10/17/2033 10/18/[address] [facility] Care Teams Media Promoter Relationship Specialty Start Date End Date Anson Andres MD PCP - General Family Practice 01/04/23
--- OUTSIDE RECORDS SUMMARY | 2025-04-02 09:02 | XMS_ITS | Encounter Summary ---
Author Organization [facility] Address [address] [place] [address] Care Team Providers Care Equipment Scheduler Name Role Phone Yonny Marion MD Primary Care Provider [phone] Ildefonso Hardin DO Primary Care Provider Juan Luis Holbrook MD Primary Care Provider [phone] Anson Andres MD Primary Care Provider [phone] Encounter Details Date Type Department Care Team (Late st Contact Info) Description 08/03/2017 Orders Only [facility] [place] [facility] Information Management [address] [place] [address] Scanning, Provider Social History Tobacco Use Types Packs/Day Years Used Date Smoking Tobacco: Never Smokeless Tobacco: Never Alcohol Use Standard Drinks/Week Comments No 0 (1 standard drink = 0.6 oz pur e alcohol) Comments Unknown Sex and Gender Information Value Date Recorded Sex Assigned at Not on file Legal Sex Female 8:29 AM OPERATION SPECIALIST Gender Identity Not on file Sexual Orientation Not on file documented as of this encounter Plan of Treatment Not on file documented as of this encounter Procedures Procedure Name Priority Date/Time Associated Diagnosis Comments CARDIOLOGY DOCUMENT SCAN 08/03/2017 documented in this encounter Results * Cardiology Document Scan (08/03/2017) Anatomical Region Laterality Modality Other us Provider Scanning CV CARDIAC SERVICES PROCEDURES Final Result documented in this encounter Visit Diagnoses Not on filedocumented in this encounter Care Teams Equipment Scheduler Relationship Specialty Start Date End Date Yonny Marion MD [address] [place] [id number] PCP - General 07/16/16 06/03/20 Ildefonso Hardin DO [address] [place] [address] PCP - General Internal Medicine 06/04/20 07/04/22 Juan Luis Holbrook MD [address] [place] [address] PCP - General Internal Medicine 07/05/22 01/03/23 Anson Andres MD [address] [place] [address] PCP - General Family Practice 01/04/23 documented as of this encounter
[2025-04-02 09:38] LABS: Hematocrit 40.9 % (37.0-47.0); Hemoglobin 14.2 g/dL (12.0-15.0); Immature Granulocyte Percent A 0.4 % (0-0.5); Lymphocytes Absolute Auto 2.62 K/mm3 (0.9-3.2); Mean Corpuscular HGB Conc 34.7 g/dl (32-36); Mean Corpuscular Hemoglobin 31.1 pg (26-34); Mean Corpuscular Volume 89.7 fl (80-100); Nucleated Red Blood Cells Absolute Auto 0.000 K/mm3 (0.0-0.012); Nucleated Red Blood Cells Perc 0.0 % (0.0-0.2); Platelet Count Result 235 k/mm3 (150-375); Red Blood Count 4.56 M/mm3 (4.2-5.4); White Blood Count 8.3 K/mm3 (4.5-10.0)
[2025-04-02 09:56] LABS: Free T3 3.38 pg/mL (2.45-5.93); Free T4 Free Thyroxine 1.26 ng/dL (0.78-2.19)
[2025-04-02 10:03] LABS: Alanine Aminotransferase 20 U/L (6-35); Albumin Level 4.1 g/dL (3.5-5.1); Alkaline Phosphatase 73 U/L (38-126); Anion Gap 7 mmol/L (4-12); Aspartate Amino Transferase 27 U/L (14-36); Bilirubin,Total 1.0 mg/dL (0.2-1.3); Blood Urea Nitrogen 25 mg/dL (7-17); Calcium 9.6 mg/dL (8.4-10.2); Carbon Dioxide 28 mmol/L (22-30); Chloride 105 mmol/L (98-107); Cholesterol 128 mg/dL (0-200); Estimated Glomerular Filt Rate 53; Glucose 100 mg/dL (65-110); HDL Direct 48 mg/dL; Magnesium 2.2 mg/dL (1.6-2.3); Potassium 3.8 mmol/L (3.4-5.0); Sodium 140 mmol/L (137-145); Total Protein 6.9 g/dL (6.3-8.2); Triglycerides 88 mg/dL (<150)
[2025-04-02 10:16] LABS: Hemoglobin A1C 5.5 % (<5.7)
[2025-04-02 10:41] LABS: Thyroid Stimulating Hormone 1.580 uIU/mL (0.465-4.680)
== END 2025-04-02 08:35 | disposition home or self-care (01) ==
PROVIDERS: PCP Nurse Practitioner Family; Visit Provider Nurse Practitioner Family
DX: F11.90 Opioid use, unspecified, uncomplicated (principal); F41.9 Anxiety disorder, unspecified; F32.A Depression, unspecified; I50.9 Heart failure, unspecified; I25.10 Atherosclerotic heart disease of native coronary artery without angina pectoris; E78.5 Hyperlipidemia, unspecified; R73.02 Impaired glucose tolerance (oral); E55.9 Vitamin D deficiency, unspecified; M19.90 Unspecified osteoarthritis, unspecified site; L65.9 Nonscarring hair loss, unspecified; R53.83 Other fatigue; I11.0 Hypertensive heart disease with heart failure
CPT/HCPCS: 36415; 80053; 80061; 83036; 83735; 84439; 84443; 84481; 85025

== ENCOUNTER 2025-04-08 14:20 | Outpatient (CLI) | payer OTHER, SELFPAY ==
--- NOTE | ~2025-04-08 | DEXA_ITS ---
Bone Density Report Name: AN DORSEY Age: 74 Sex: Female Ethnicity: White Date of : 1950 Indication: postmenopausal; screening for osteoporosis; height loss; hysterectomy; Referring Provider: CATINA BRADLEY Study: Bone densitometry was performed. Exam Date: April 08, 2025 Accession number: [id number] Bone Density: Region BMD T-score Z-score Classification AP Spine(L1-L4) 1.274 2.1 4.4 Normal Femoral Neck (Left) 0.912 0.6 2.6 Normal Total Hip (Left) 1.039 0.8 2.5 Normal Femoral Neck (Right) 0.946 0.9 2.9 Normal Total Hip (Right) 1.057 0.9 2.6 Normal Total Hip Mean 1.048 0.9 2.6 Normal World Health Organization criteria for BMD impression classify patients as: Normal (T-score at or above -1.0), Osteopenia (T-score between -1.0 and -2.5), or Osteoporosis (T-score at or below -2.5). 10-year Fracture Risk: FRAX not reported because: All T-scores for Spine Total, Hip Total, Femoral Neck at or above -1.0 Previous Exams: -- Region Exam Age BMD T-score BMD Change BMD Change Date g/cm2 vs Baseline vs Previous -- AP Spine (L1-L4) 04/08/2025 74 1.274 2.1 4.8%* 1.6%# 08/05/2022 71 1.254 1.9 3.2%# 3.2%# 03/13/2008 57 1.215 1.5 Total Hip(Left) 04/08/2025 74 1.039 0.8 1.1% -0.9%# 08/05/2022 71 1.048 0.9 2.0%# 2.0%# 03/13/2008 57 1.028 0.7 Total Hip(Right) 04/08/2025 74 1.057 0.9 0.0%# -2.0% 08/05/2022 71 1.078 1.1 2.0%# 2.0%# 03/13/2008 57 1.057 0.9 -- *Denotes significance at 95% confidence level, LSC for AP Spine = 0.022 g/cm2, LSC for Total Hip = 0.027 g/cm2 # Denotes dissimilar scan types or analysis methods Clinical Information Provided by Patient: Has used the following medications: Vitamin D Has the following medical conditions: Hysterectomy Patient maximum height was 65 Menopause Age: 29 No regular weight bearing exercise Does not regularly consume dairy products Drinks caffeinated beverages Onset of menses at age 13 Number of children 2 Impression: The patient has normal bone mass. Unable to evaluate interval change due to the use of different scan modes. Discussion: LOW RISK OF FRACTURE; BONE DENSITY IS WELL ABOVE THE MINIMUM DESIRABLE LEVEL AND ABOVE AVERAGE FOR AGE AND SEX AT ALL SKELETAL SITES TESTED. This person's bone density is above expected limits for age and sex. This is rarely clinically significant, but should be pursued if there are significant musculoskeletal complaints. The patient should follow a healthful lifestyle (good nutrition with adequate calcium and vitamin D, and appropriate weight-bearing exercise). Follow-Up: Consider repeating this study in 5 years or sooner if there is some new clinical indication. Reported by: VISHNU on 04/08/2025 3:03:00 PM. Reviewed, dictated and finalized at location A.
--- NOTE | ~2025-04-08 | MM_ITS ---
EXAMINATION: MM screening heather BI w tegan HISTORY: Screening. TECHNIQUE: Craniocaudal and mediolateral oblique 3-D tomosynthesis images were obtained and synthetic 2-D images were generated. CAD analysis was submitted and interpreted. COMPARISON: 2022, 2020, and 2018. BREAST PARENCHYMAL COMPOSITION: Dense: The breasts are heterogeneously dense FINDINGS: No suspicious masses are seen. There are no suspicious calcifications. No unexplained architectural distortion is seen. There are no skin or nipple abnormalities identified. There is no adenopathy seen on the images submitted. IMPRESSION: No mammographic evidence to suggest malignancy is seen. The patient may return to screening mammography as per ACR guidelines. BI-RADS 1 - Negative. Reviewed, dictated and finalized at location A. 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
== END 2025-04-08 14:21 | disposition home or self-care (01) ==
PROVIDERS: PCP Nurse Practitioner Family; Visit Provider Nurse Practitioner Family
DX: Z12.31 Encounter for screening mammogram for malignant neoplasm of breast (principal); M81.0 Age-related osteoporosis without current pathological fracture; Z13.820 Encounter for screening for osteoporosis
CPT/HCPCS: 77063; 77067; 77080